=== PATIENT | male | born 1980 | race Caucasian/White ===

== ENCOUNTER 2019-04-11 13:25 | Observation (INO) | payer MEDICARE, MEDICAID, SELFPAY | END 2019-04-11 16:35 | disposition home or self-care (01) | PROVIDERS: Admitting Provider Internal Medicine Cardiovascular Disease; Family Provider Nurse Practitioner Family; Visit Provider Internal Medicine Cardiovascular Disease | DX: R07.89 Other chest pain (principal); R00.2 Palpitations; R06.02 Shortness of breath; F17.210 Nicotine dependence, cigarettes, uncomplicated; R61 Generalized hyperhidrosis; G47.31 Primary central sleep apnea; J43.9 Emphysema, unspecified; Z86.14 Personal history of Methicillin resistant Staphylococcus aureus infection; Z82.49 Family history of ischemic heart disease and other diseases of the circulatory system | CPT/HCPCS: 36415; 93458; G0378 ×9; J1644 ×2; J2001; J2250 ×3; J3010; J3490; Q9967 ==

== ENCOUNTER → 2019-09-11 09:32 | Outpatient (BNVA) | payer MEDICARE, MEDICAID, SELFPAY | PROVIDERS: Family Provider Nurse Practitioner Family; PCP Nurse Practitioner Family; Visit Provider Nurse Practitioner Family | DX: M25.511 Pain in right shoulder (principal) | CPT/HCPCS: 73030; 73080 ==

== ENCOUNTER → 2019-09-24 14:01 | Outpatient (BNVA) | payer MEDICARE, MEDICAID, SELFPAY | PROVIDERS: Family Provider Nurse Practitioner Family; PCP Nurse Practitioner Family; Visit Provider Nurse Practitioner Family | DX: M25.511 Pain in right shoulder (principal) | CPT/HCPCS: 73030 ==

== ENCOUNTER 2019-09-26 16:33 | Outpatient (CLI) | payer MEDICARE, MEDICAID, SELFPAY ==
--- NOTE | 2019-09-26 17:30 | MRR_ITS ---
PROCEDURE INFORMATION: Exam: MR Right Upper Extremity Joint Without Contrast; Shoulder Exam date and time: 09/26/2019 5:10 PM Age: 39 years old Clinical indication: Pain; Shoulder; Right TECHNIQUE: Imaging protocol: MR of the Right upper extremity without contrast. Exam focused on the shoulder. COMPARISON: CR XR shoulder RT min 2V* [id number] 09/24/2019 10:38 AM FINDINGS: TENDONS: Supraspinatus tendon: Unremarkable. No evidence of tear. Infraspinatus tendon: Unremarkable. No evidence of tear. Subscapularis tendon: Unremarkable. No evidence of tear. Teres minor tendon: Unremarkable. No evidence of tear. Biceps brachii, long head tendon: Unremarkable. No evidence of tear. LIGAMENTS: Glenohumeral ligaments: Unremarkable. Glenoid labrum: Unremarkable. No evidence of tear. Cartilage: Unremarkable. Bones/joints: There is exaggerated hematopoietic marrow signal in the humerus. On some of the series such is series 9, image 20, there does appear to be slightly more edema the may reflect recent contusion or stress changes without a fracture. This is adjacent to the biceps tendon which is unremarkable. This may just be poor fat saturation. Joint fluid: No joint effusion. Muscles: Unremarkable. MR/MR shoulder RT wo con* [id number] IMPRESSION: 1. No rotator cuff tear. No labral tear. 2. Mildly exaggerated hematopoietic marrow signal. This is most common in overweight patients in smokers. On some of the series common appears may be slightly more edema in the anterior humeral metaphysis. This could just be poor fat saturation or could reflect some mild edema such is an early stress fracture or bony contusion. The adjacent biceps tendon and subscapularis are intact.
== END 2019-09-26 16:34 | disposition home or self-care (01) ==
PROVIDERS: Family Provider Nurse Practitioner Family; PCP Nurse Practitioner Family; Visit Provider Orthopaedic Surgery
DX: M25.511 Pain in right shoulder (principal)
CPT/HCPCS: 73221

== ENCOUNTER → 2019-11-12 13:21 | Outpatient (BNVA) | payer MEDICARE, MEDICAID, SELFPAY | PROVIDERS: Family Provider Nurse Practitioner Family; PCP Nurse Practitioner Family; Visit Provider Nurse Practitioner | DX: R50.9 Fever, unspecified (principal); J01.90 Acute sinusitis, unspecified; J01.40 Acute pansinusitis, unspecified | CPT/HCPCS: 87400 ==

== ENCOUNTER → 2020-05-26 16:44 | Outpatient (BNVA) | payer MEDICARE, SELFPAY | PROVIDERS: Family Provider Nurse Practitioner Family; PCP Nurse Practitioner Family; Visit Provider Nurse Practitioner Family | DX: J22 Unspecified acute lower respiratory infection (principal) | CPT/HCPCS: 71046 ==

== ENCOUNTER 2020-07-16 11:54 | Emergency (ER) | payer MEDICARE, MEDICAID, SELFPAY ==
[2020-07-16 12:08] VITALS: BP 109/66; PULSE 85; RESP 18; TEMP 36.7; O2SAT 96; BMI 20.2
--- NOTE | 2020-07-16 12:30 | XR_ITS ---
WS: [id number] Exam: XR chest 1V portable [id number] Date/Time of Exam: 07/16/2020 12:50 PM Reason For Exam: syncope Comparison 05/26/2020. The lungs are fully expanded and clear. Normal cardiomediastinal structures and bony elements. No ple ural effusions. XR/XR chest 1V portable [id number] IMPRESSION: 1. No acute cardiopulmonary finding.
--- NOTE | 2020-07-16 12:34 | W.ED.COVID ---
HPI - COVID General: Chief Complaint: COVID symptoms Stated Complaint: sob,cough, muscle aches Time Seen by Provider: 07/16/20 12:15 Source: patient Mode of arrival: ambulatory Limitations: no limitations Triage information: Has fever, cough or shortness of breath. 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 He reports fever stopped yesterday. States feels weak and tired. Does not understand why he is still sick and not feeling well. He denies vomiting, able to eat and drink without difficulty despite decreased appetite. He denies chest pain. He states shortness of breath with exertion but feels better when he rests. has oxygen sensor he monitors oxygen at home. Oxygen saturation 96 to 100%. He is here with his spouse who is also being seen, she has symptoms of Covid. He request confirmed Covid testing today. He is requesting to be tested again to ensure he is positive. MD complaint: known COVID positive (but [facility] in [place] told him, was a false + ) and has COVID symptoms Prior covid testing: no COVID 19 common symptoms: positive fever(s), chills, cough, productive cough (Range sputum), dyspnea, fatigue, body aches, loss of sense of smell and/or taste, nasal congestion, nausea and diarrhea (None today); negative headache(s) COVID 19 other sytmptoms: negative chest pain Onset (ago): day(s) (8) Pertinent comorbid conditions: other (COPD) Treatment prior to arrival: acetaminophen, ibuprofen, steroids and other (Ventolin HFA) COVID Results: SARS-CoV-2 RNA (RT-PCR) Pending 07/16/20 12:55 07/16/20 Review of Systems General: Reports: 10 or more systems reviewed and unremarkable except in HPI and below Const: Reports: fever(s), chills, body aches, fatigue and malaise Eyes: Denies: blurry vision or eye redness ENMT: Reports: nasal discharge and nasal congestion; Denies: odynophagia or dry mouth Card: Reports: dyspnea on exertion; Denies: chest pain, palpitations, irregular heart rhythm, edema, syncope or orthopnea Resp: Reports: dyspnea, productive cough (Range sputum) and chest congestion; Denies: wheezing, pain on inspiration or hemoptysis GI: Reports: nausea and diarrhea (None today); Denies: abdominal pain or constipation : Denies: difficulty urinating, dysuria or urinary urgency Musc: Denies: neck pain, back pain, joint pain or joint warmth Skin/Breast: Denies: rash or pruritus Neuro: Denies: headache(s), weakness in extremities or behavioral changes Psych: Denies: anxiety or depression Branden/Lymph: Denies: easy bruising PFSH ED PFSH: Medical History (Updated 07/16/20 @ 13:49 by PAUL Garcia) Essential hypertension History of rotator cuff tear Lower respiratory infection Shortness of breath Social History Smoking and tobacco status: current every day smoker Alcohol intake: former Physical Exam Const: COMMON NORMALS: no acute distress, patient oriented x3 and alert GENERAL APPEARANCE: cooperative, comfortable, well hydrated and other (Appears not feeling well) NUTRITIONAL APPEARANCE: thin ORIENTATION/CONSCIOUSNESS: Yes awake, Yes oriented to person, Yes oriented to place and Yes oriented to time HENMT: COMMON NORMALS: normocephalic, atraumatic, Normal external nose present and moist oral mucous membranes HEAD & SCALP: normal to inspection, normocephalic and atraumatic FACE & SINUS: normal facial exam and face symmetric NOSE: Normal external nose present MOUTH: Normal oral and palatal mucosa present THROAT: posterior oropharynx normal Eye: COMMON NORMALS: Equal, round and reactive pupils present and EOMs intact bilaterally GENERAL EYE: appearance normal, both eyes and all related structures PUPIL: Yes Equal, round and reactive pupils present Neck/C-Spine: COMMON NORMALS: full ROM and no lymphadenopathy GENERAL: Yes normal visual inspection and Yes trachea midline CERVICAL SPINE: Yes cervical ROM normal Lymph: LYMPHATIC: no lymphadenopathy noted Chest: COMMONS NORMALS: normal inspection of the chest Resp: COMMON NORMALS: normal respiratory effort and clear to auscultation bilaterally EFFORT & INSPECTION: Yes able to speak in complete sentences AUSCULTATION: clear to auscultation bilaterally Cardio: COMMON NORMALS: regular rhythm, S1 normal heart sound present, S2 normal heart sound present and Peripheral pulses 2+ throughout RHYTHM: regular rhythm HEART SOUNDS: S1 normal heart sound present and S2 normal heart sound present PERIPHERAL PULSES: Peripheral pulses 2+ throughout GI: COMMON NORMALS: Normal to inspection, nondistended, normoactive bowel sounds present, Soft to palpation and non-tender INSPECTION: Yes normal to inspection PALPATION: Yes Soft to palpation : COMMON NORMALS: Yes no CVA tenderness BLADDER/KIDNEY EXAM: Yes no CVA tenderness Back/Pelvis: COMMON NORMALS: no CVA tenderness and thoracic and lumbar spine normal to inspection Extremity: COMMON NORMALS: normal to inspection and capillary refill normal Neuro: COMMON NORMALS: patient oriented x3 and no focal motor deficits SENSORIUM/ORIENTATION: Yes alert, Yes oriented to person, Yes oriented to place and Yes oriented to time Psych: COMMON NORMALS: mental status grossly normal, Normal thought process present and cooperative ACTIVITY/MOTOR BEHAVIOR: Yes appropriate eye contact THOUGHT PROCESS: Normal thought process present Skin: COMMON NORMALS: no rashes or lesions noted and turgor normal GENERAL SKIN EXAM: no rashes or lesions noted and turgor normal Course Vital Signs: Vital signs: Vital Signs Temperature 98.1 F 07/16/20 12:08 Pulse Rate 85 07/16/20 12:08 Respiratory Rate 18 07/16/20 12:08 Blood Pressure 109/66 07/16/20 12:08 Pulse Oximetry 96 07/16/20 12:08 MDM - COVID Imaging Data: CXR: Radiologist's impression: [address] [address] XRay Report Signed Patient: Alberto Corado Unit #: [id number] : 1980 Age/Sex: 39 / M ADM Date: 07/16/20 Loc: ER Room/Bed: Attending Dr: Ordering Provider/Ordering MD: Ai Marrero Date of Service: 07/16/20 Procedure(s): XR chest 1V portable [id number] Accession Number(s): [id number] Report Number: [id number] WS: [id number] Exam: XR chest 1V portable [id number] Date/Time of Exam: 07/16/2020 12:50 PM Reason For Exam: syncope Comparison 05/26/2020. The lungs are fully expanded and clear. Normal cardiomediastinal structures and bony elements. No pleural effusions. XR/XR chest 1V portable [id number] IMPRESSION: 1. No acute cardiopulmonary finding. Dictated By: Fredo Barragan DO Signed By: Fredo Barragan DO Signed Date/Time: 07/16/20 1342 DD/ 1340 COVID Results: SARS-CoV-2 RNA (RT-PCR) Pending 07/16/20 12:55 07/16/20 Discharge Plan Discharge Patient Disposition: Home Clinical Impression: Suspected severe acute respiratory syndrome coronavirus 2 (SARS-CoV-2) infection Acute bronchitis Qualifiers: Bronchitis organism: unspecified organism Qualified Code(s): J20.9 - Acute bronchitis, unspecified Condition: Stable Prescriptions: New Zofran 4 mg tablet 4 mg PO Q4H Qty: 10 RF: 0 No Action acetaminophen [Tylenol] 325 mg capsule 325 mg PO QID PRNRF: 0 ibuprofen 800 mg tablet 800 mg PO Q8H PRN (Reason: back pain) 30 Days Qty: 90 RF: 2 tizanidine 4 mg tablet 4 mg PO Q6H PRN (Reason: muscle spasticity) 14 Days Qty: 30 RF: 0 prednisone 20 mg tablet 40 mg PO .Daily in A.M. 5 Days Qty: 10 RF: 0 levofloxacin 750 mg tablet 750 mg PO DAILY 7 Days Qty: 7 RF: 0 Advair HFA 230-21 mcg/actuation HFA aerosol inhaler 2 inh inhalation Q12H 30 Days Qty: 12 RF: 2 Discharge Orders: Discharge Order (Routine); Ordered 07/16/20 Ordered By: Ai Marrero Referrals: LAUREN Tsang, PRODUCT SPECIALIST [Primary Care Provider] - Discharge Diet: Advance as tolerated and Clear Liquid Discharge Activity: Limit activity as instructed Patient Instructions: Acute Bronchitis (ED), Viral Syndrome (ED) Activity Restrictions/Additional Instructions: Continue to monitor oxygen saturation at home, if oxygen level drops below 90% return to the emergency department for further evaluation ER to rest at home, remain in quarantine, COVID-19 testing results will be called to you, if positive, [facility] will contact you for further instructions Return to the emergency department if you develop chest pain, inability to catch your breath, or vomiting despite use of Zofran or other worsening symptoms. 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
[2020-07-18 22:19] LABS: Quest SARS-CoV-2 RNA NOT DETECTED (NOT DETECTED)
== END 2020-07-16 14:16 | disposition home or self-care (01) ==
PROVIDERS: Emergency Provider Nurse Practitioner Family; PCP Nurse Practitioner Family
DX: J20.9 Acute bronchitis, unspecified (principal); Z20.828 Contact with and (suspected) exposure to other viral communicable diseases; I10 Essential (primary) hypertension; F17.210 Nicotine dependence, cigarettes, uncomplicated
CPT/HCPCS: 12345; 71045; 87635; 99281; 99283

== ENCOUNTER → 2020-10-22 09:11 | Outpatient (BNVA) | payer MEDICARE, MEDICAID, SELFPAY | PROVIDERS: PCP Nurse Practitioner Family; Visit Provider Nurse Practitioner Family | DX: S69.91XA Unspecified injury of right wrist, hand and finger(s), initial encounter (principal); X58.XXXA Exposure to other specified factors, initial encounter | CPT/HCPCS: 73140 ==

== ENCOUNTER 2021-06-07 07:51 | Outpatient (CLI) | payer MEDICARE, MEDICAID, SELFPAY ==
[2021-06-07] MEDS: iohexol 300 mg/mL 50 mL Btl PO (08:35)
--- NOTE | 2021-06-07 09:30 | CT_ITS ---
WS: [id number] CT ABDOMEN PELVIS TECHNIQUE: Contrast-enhanced CT of the abdomen and pelvis with coronal and sagittal reformatted image s. CLINICAL INFORMATION: R10.9 - Unspecified abdominal pain COMPARISON: July 19, 2019 DLP: 1049.[address] scans at [place] use at least one of these dose optimization techniques: automated e xposure control; mA and/or kV adjustment per patient size (includes targeted exams where dose is matc hed to clinical indication); or iterative reconstruction. FINDINGS: Hepatomegaly. Diffuse fatty infiltration liver. Normal portal vein and splenic vein. Lung bases are w ell aerated. Normal GE junction. Adrenal glands are normal. Normal renal parenchymal enhancement. No hydronephrosis. Normal spleen. Prior epigastric ventral abdominal wall hernia repair. No evidence of recurrence herni a. Tiny fat-containing umbilical hernia. No herniated bowel. Normal caliber abdominal aorta. No evidence of high-grade small or large bowel obstruction. No abdomi nal or pelvic lymphadenopathy. No inguinal lymphadenopathy. Normal lumbar spine. CT/CT abdomen pelvis w con* [id number] IMPRESSION: 1. Hepatomegaly with diffuse fatty infiltration. 2. Prior epigastric hernia repair. No evidence of recurrent hernia or herniate d bowel. 3. Tiny fat-containing umbilical hernia appears unchanged. 4. Sigmoid diverticulosis. No evidence of acute diverticulitis. 5. No other significant findings.
[2021-06-07] MEDS: iohexol 300 mg/mL 100 mL Btl IV (09:32)
== END 2021-06-07 07:52 | disposition home or self-care (01) ==
PROVIDERS: PCP Nurse Practitioner Family; Visit Provider Surgery
DX: R10.9 Unspecified abdominal pain (principal); K43.9 Ventral hernia without obstruction or gangrene; R16.0 Hepatomegaly, not elsewhere classified; K76.0 Fatty (change of) liver, not elsewhere classified; K57.30 Diverticulosis of large intestine without perforation or abscess without bleeding
CPT/HCPCS: 74177; Q9967

== ENCOUNTER → 2021-06-27 09:55 | Outpatient (BNVA) | payer MEDICARE, MEDICAID, SELFPAY | PROVIDERS: PCP Nurse Practitioner Family; Visit Provider Surgery | DX: Z20.822 Contact with and (suspected) exposure to COVID-19 (principal) | CPT/HCPCS: 87635 ==

== ENCOUNTER 2021-06-28 08:15 | Outpatient (CLI) | payer MEDICARE, MEDICAID, SELFPAY ==
--- NOTE | 2021-06-28 08:21 | MR_ITS ---
WS: [id number] MRI ABDOMEN without CONTRAST. COMPARISON: CT 06/07/2021 Multiplanar, multisequence imaging is performed without contrast. Liver is very slightly enlarged. No significant hepatic steatosis is identified. No bile duct dilatat ion. Portal vein is normal. Spleen is normal size. Normal pancreas. Pancreatic duct is normal. No adr enal mass. No renal obstruction or mass. No ascites or adenopathy. Negative gallbladder. Lung bases are clear. Visualized GI tract is normal. There is moderate constipation noted with increa sed fecal material within the transverse colon and splenic flexure. MR/MR abdomen wo con [id number] IMPRESSION: 1. No abnormalities noted on this MRI of the abdomen without contrast. 2. Moderate constipation involving the transverse colon and splenic flexure wi th no obstruction. 3. No bile duct dilatation or mass.
== END 2021-06-28 08:16 | disposition home or self-care (01) ==
PROVIDERS: PCP Nurse Practitioner Family; Visit Provider Surgery
DX: K59.00 Constipation, unspecified (principal)
CPT/HCPCS: 74181

== ENCOUNTER 2021-06-30 07:36 | Day surgery (SDC) | payer MEDICARE, MEDICAID, SELFPAY ==
[2021-06-28 09:43] VITALS: BMI 19.6
--- NOTE | 2021-06-30 07:40 | ANES.PREANE2 ---
Pre-Anesthetic Assessment Pre-Anesthetic Assessment: Height/Weight: Height 1.83 m Weight 65.771 kg Preop Diagnosis: abdominal pain Proposed Procedure: Operation Date: 06/30/21 10:00 Proposed Procedures p EGD 74709 R10.9(Not Applicable) - Dilshad Crawford MD Familial anesthetic complications: None Was Beta Emy taken within 24 hours: N/A Was Clonidine taken within 24 hours: N/A Last intake: > 8 hrs Social: Social History: Tobacco and No alcohol Exam: Pre-Anes Outpt Exam: alert, oriented x 3, clear to auscultation bilaterally and regular rate & rhythm Airway: Cervical ROM: WNL MP: 2 Dentition: False Pulmonary: Pulmonary: COPD GI: GI: GERD Anesthetic Plan: ASA status: 2 Anesthesia: MAC Risk of > 500 ml blood loss (7ml/kg in children): No PFSH Anesthesia PFSH: Medical History Abdominal hernia Essential hypertension Finger injury History of amputation of toe 2004 History of rotator cuff tear Lower respiratory infection Surgical History H/O ventral hernia repair History of colonoscopy 2018 History of fasciotomy right 2005 History of incisional hernia repair Social History Alcohol intake: former Data Anesthesia Cardiac Studies: No Data to Display
--- NOTE | 2021-06-30 07:47 | W.PM.OPSUD ---
Surgery/Procedure H&P Update DATE OF PROCEDURE: June 30, 2021 DATE H&P PERFORMED: 06/21/21 PREOP DIAGNOSIS: abdominal pain PLANNED PROCEDURE: Operation Date: 06/30/21 10:00 Proposed Procedures p EGD 30657 R10.9(Not Applicable) - Dilshad Crawford MD
[2021-06-30 07:57] VITALS: BP 120/65; PULSE 81; RESP 18; TEMP 36.6; O2SAT 99
[2021-06-30] MEDS: sodium chloride 0.9% 1,000 ML 30 ML IV (08:06)
[2021-06-30 08:23] VITALS: BP 111/64; PULSE 81; RESP 16; TEMP 36.6; O2SAT 98
[2021-06-30 08:30] VITALS: BP 120/75; PULSE 77; RESP 18; TEMP 36.3; O2SAT 96
[2021-06-30 08:40] VITALS: BP 121/80; PULSE 77; RESP 18; O2SAT 98
== END 2021-06-30 08:52 | disposition home or self-care (01) ==
PROVIDERS: PCP Nurse Practitioner Family; Visit Provider Surgery
PROC: 0DJ08ZZ Inspection of Upper Intestinal Tract, Via Natural or Artificial Opening Endoscopic (ICD-10-PCS; CPT 43235; principal; 2021-06-30 10:00)
DX: R10.13 Epigastric pain (principal); K29.50 Unspecified chronic gastritis without bleeding; K31.A0 Gastric intestinal metaplasia, unspecified; K25.9 Gastric ulcer, unspecified as acute or chronic, without hemorrhage or perforation; K20.90 Esophagitis, unspecified without bleeding; R10.12 Left upper quadrant pain; I10 Essential (primary) hypertension; Z88.0 Allergy status to penicillin; Z88.2 Allergy status to sulfonamides; Z98.890 Other specified postprocedural states
CPT/HCPCS: 43239; 88305; 96360; J2704; J7030

== ENCOUNTER → 2021-08-09 11:57 | Outpatient (BNVA) | payer MEDICARE, MEDICAID, SELFPAY | PROVIDERS: PCP Nurse Practitioner Family; Visit Provider Nurse Practitioner Family | DX: J06.9 Acute upper respiratory infection, unspecified (principal); R68.89 Other general symptoms and signs | CPT/HCPCS: 87400; 87635 ==

== ENCOUNTER → 2021-08-12 09:30 | Outpatient (BNVA) | payer MEDICARE, MEDICAID, SELFPAY | PROVIDERS: PCP Nurse Practitioner Family; Visit Provider Nurse Practitioner Family | DX: J06.9 Acute upper respiratory infection, unspecified (principal); R68.89 Other general symptoms and signs | CPT/HCPCS: 87635 ==

== ENCOUNTER 2022-01-25 12:30 | Outpatient (CLI) | payer MEDICARE, MEDICAID, SELFPAY ==
--- NOTE | 2022-01-25 12:44 | CT_ITS ---
WS: [id number] CT SINUSES TECHNIQUE: Noncontrast CT of the paranasal sinuses with coronal and sagittal reformatted images. CLINICAL INFORMATION: SINUSITIS COMPARISON: None. DLP: 364.[address] scans at [facility] use at least one of these dose optimization techniques: automated e xposure control; mA and/or kV adjustment per patient size (includes targeted exams where dose is matc hed to clinical indication); or iterative reconstruction. FINDINGS: Mild LEFT to RIGHT nasal septal deviation measuring 3 mm. Prior RIGHT maxillary antrostomy with uncinectomy. LEFT honorio bullosa. Polypoid mucosal thickening in the RIGHT greater than LEFT max illary sinuses measuring 8 mm on the RIGHT and 6 mm LEFT. Mild narrowing of the LEFT ostiomeatal unit with mild mucosal thickening. Mild mucosal thickening in the frontoethmoidal recesses and ethmoid air cells. Frontal sinuses are we ll aerated. Normal pterygopalatine fossa. Sphenoid sinus is well aerated. Tiny retention cyst LEFT sp henoid sinus measuring 5 mm. Mastoid air cells well aerated. Normal posterior nasopharynx. Normal par apharyngeal fat. Partially visualized intracranial contents appear normal. CT/CT sinus wo con* [id number] IMPRESSION: 1. Mild LEFT to RIGHT nasal deviation measuring 3 mm with a leftward directed spur. 2. Prior postoperative changes RIGHT maxillary antrostomy and uncinectomy. 3. Mild narrowing of the LEFT ostiomeatal unit with mild mucosal thickening. 4. Polypoid mucosal thickening RIGHT greater than LEFT maxillary sinuses descr ibed above. 5. Mild mucosal thickening in the frontal ethmoidal recesses and ethmoid cells . 6. Tiny retention cyst in the LEFT sphenoid sinus measuring 5 mm. Slight mucos al thickening along the sphenoid sinus ostia. 7. Mastoid air cells well aerated. 8. Posterior nasopharynx appears normal.
== END 2022-01-25 12:31 | disposition home or self-care (01) ==
LOC: RAD 12:35
PROVIDERS: PCP Nurse Practitioner Family; Visit Provider Otolaryngology
DX: J32.9 Chronic sinusitis, unspecified (principal); J34.1 Cyst and mucocele of nose and nasal sinus; J34.2 Deviated nasal septum
CPT/HCPCS: 70486

== ENCOUNTER → 2022-01-30 09:24 | Outpatient (BNVA) | payer MEDICARE, MEDICAID, SELFPAY | PROVIDERS: PCP Nurse Practitioner Family; Visit Provider Otolaryngology | DX: J32.9 Chronic sinusitis, unspecified (principal); J34.2 Deviated nasal septum; M95.0 Acquired deformity of nose; L90.5 Scar conditions and fibrosis of skin; F17.210 Nicotine dependence, cigarettes, uncomplicated | CPT/HCPCS: 99213 ==

== ENCOUNTER → 2022-04-25 08:41 | Outpatient (BNVA) | payer MEDICARE, MEDICAID, SELFPAY | PROVIDERS: PCP Nurse Practitioner Family; Visit Provider Otolaryngology | DX: J32.9 Chronic sinusitis, unspecified (principal); J34.2 Deviated nasal septum; M95.0 Acquired deformity of nose; L90.5 Scar conditions and fibrosis of skin; Z87.891 Personal history of nicotine dependence | CPT/HCPCS: 99213 ==

== ENCOUNTER → 2022-05-30 07:55 | Outpatient (BNVA) | payer MEDICARE, MEDICAID, SELFPAY | PROVIDERS: PCP Nurse Practitioner Family; Visit Provider Otolaryngology | DX: J34.2 Deviated nasal septum (principal); M95.0 Acquired deformity of nose; J32.9 Chronic sinusitis, unspecified; L90.5 Scar conditions and fibrosis of skin; Z87.891 Personal history of nicotine dependence | CPT/HCPCS: 99214 ==

== ENCOUNTER 2022-06-01 09:38 | Day surgery (SDC) | payer MEDICARE, MEDICAID, SELFPAY ==
[2022-05-29 11:44] VITALS: BMI 20.2
[2022-06-01] VITALS (14 sets, daily range): BP systolic 129–153; BP diastolic 71–99; PULSE 63–83; RESP 13–18; TEMP 36.3–36.9; O2SAT 95–100
[2022-06-01] MEDS: sodium chloride 0.9% 1,000 ML 30 ML IV ×2 (10:29→14:42)
--- NOTE | 2022-06-01 11:50 | P.ANESASSM_ITS ---
Pre-Anesthetic Assessment Height/Weight: Height 1.8 m Weight 65.771 kg Temp Pulse Resp BP Pulse Ox O2 Del Method 98.0 F 73 16 145/88 98 06/01/22 10:13 06/01/22 10:13 06/01/22 10:13 06/01/22 10:13 06/01/22 10:13 06/01/22 10:15 Preop Diagnosis: Chronic sinusitis/deviated nasal septum/alar scarring Operation Date: 06/01/22 11:55 Proposed Procedures p Endoscopic Bilateral antrosotmy with maxillary sinusectomy, Bilateral anterior ethmoidectomy, septoplasty with reconstruction of nares with flap rotation- [id number],J32.9,J34.2,M95.0(Bilateral) - Flynn Mcconnell MD s Ethmoidectomy(Bilateral) - Flynn Mcconnell MD s Septoplasty(Not Applicable) - Flynn Mcconnell MD Familial anesthetic complications: none Was Beta Emy taken within 24 hours: N/A Was Clonidine taken within 24 hours: N/A Last intake: Intake Last Liquid Date 05/31/22 Last Liquid Time 22:45 Last Solid Date 05/31/22 Last Solid Time 22:45 Social Tobacco (quit 2 weeks ago) and No alcohol Exam alert, oriented x 3 and regular rate & rhythm Airway Submandibular: within normal limits Cervical ROM: within normal limits Mallampati: Class II Dentition: chipped and false (upper) Pulmonary Chronic Obstructive Pulmonary Disease Musc/skel Osteoarthritis/DJD Anesthetic Plan ASA status: 2 Anesthesia: General Medications/Allergies Home Medications Medication Instructions Recorded Confirmed Last Taken Type No Known Home Medications 05/30/22 05/30/22 Unknown History Allergies Allergy/AdvReac Type Severity Reaction Status Date / Time cefaclor [From Ceclor] Allergy Mild RASH Verified 05/30/22 08:27 cephalexin [From Keflex] Allergy Mild RASH Verified 05/30/22 08:27 erythromycin base Allergy Mild RASH Verified 05/30/22 08:27 [From Erythrocin] Penicillins Allergy Mild RASH Verified 05/30/22 08:27 sulfamethoxazole Allergy Mild RASH Verified 05/30/22 08:27 [From Bactrim] trimethoprim [From Bactrim] Allergy Mild RASH Verified 05/30/22 08:27 methylprednisolone Allergy RASH Verified 05/30/22 08:27 [From Medrol] Current Medications Generic Name Dose Route Start Last Admin Trade Name Freq PRN Reason Stop Dose Admin Sodium Chloride 1,000 mls @ 30 mls/hr 06/01/22 10:15 06/01/22 10:29 Sodium Chloride 0.9% IV 06/02/22 10:14 30 mls/hr .Q24H EVAN Administration PFSH Anesthesia Medical History Essential hypertension Flu-like symptoms History of rotator cuff tear Lower respiratory infection Nasal cavity mass Upper respiratory infection Surgical History H/O esophagogastroduodenoscopy (06/30/21) esophagitis and gastric erosions H/O ventral hernia repair History of amputation of toe 2005 History of colonoscopy 2018 History of fasciotomy right 2005 History of incisional hernia repair History of sinus surgery Social History Smoking and tobacco status: former smoker Alcohol intake: former Data Anesthesia Cardiac Studies: No Data to Display
--- NOTE | 2022-06-01 11:54 | W.PM.OPSUD ---
Surgery/Procedure H&P Update DATE OF PROCEDURE: June 01, 2022 DATE H&P PERFORMED: 05/30/22 H&P UPDATE INFORMATION: I have reviewed H&P completed within last 30 days, I have examined patient prior to procedure and No changes to prior documentation CHANGES TO PREVIOUS DOCUMENTATION: No changes PREOP DIAGNOSIS: Chronic sinusitis/deviated nasal septum/alar scarring PRIMARY INDICATION FOR PROCEDURE: Chronic sinusitis deviated nasal septum and left nasal alar scarring with narrow nares. PLANNED PROCEDURE: Operation Date: 06/01/22 11:55 Proposed Procedures p Endoscopic Bilateral antrosotmy with maxillary sinusectomy, Bilateral anterior ethmoidectomy, septoplasty with reconstruction of nares with flap rotation- [id number],J32.9,J34.2,M95.0(Bilateral) - Flynn Mcconnell MD s Ethmoidectomy(Bilateral) - Flynn Mcconnell MD s Septoplasty(Not Applicable) - Flynn Mcconnell MD
[2022-06-01] MEDS: ceFAZolin 2,000 MG in sodium chloride 0.9% (plus) 50 ML 100 MG IV (12:20)
--- NOTE | 2022-06-01 13:00 | SUR.OPER ---
1238 DR WATSON INJECTED 11.9ML 2% LIDOCAINE WITH EPI 1:100,000 IN THE NASAL AREA
[2022-06-01] MEDS: oxymetazoline 0.05% Nasal Spray 15 mL 2 SPRAY NOSTRIL-B (13:07)
[2022-06-01] MEDS: neomycin-poly-bacitracin oint 28 gm 1 APPLIC TOPICAL (13:25)
--- NOTE | 2022-06-01 13:45 | P.OP_ITS ---
Operative Report Date of procedure: June 01, 2022 Pre-op diagnosis: Preop Diagnosis Chronic sinusitis/deviated nasal septum/alar scarring Post-op diagnosis: Same Post-op findings: Extremely narrow nasal inlet to the skull. That combined with the scarred left nares and alar area and the deviated nasal septum gave him an extremely narrow inlet even after surgery. Procedure done: Procedure done included endoscopic bilateral antrostomy with maxillary sinusectomy, endoscopic bilateral anterior ethmoidectomy, septoplasty and repair of stenotic left nares and alar scarring with rotation full-thickness skin flap. 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 Patient has a severely deviated nasal septum to the left side with virtually 100% obstruction. Has CT evidence of chronic anterior ethmoid and bilateral maxillary chronic sinusitis. Brief History: 41-year-old male patient due to and chronic bilateral anterior ethmoid and bilateral maxillary sinusitis and deviated nasal septum with stenotic left nares and alar rim.. The patient is to undergo endoscopic bilateral anterior ethmoidectomy and bilateral antrostomy with maxillary sinusectomy as well as septoplasty and reconstruction of left nares and alar rim with full-thickness rotation flap. The procedure risks and complications of been explained in detail. These risks include bleeding infection numbness scarring swelling bruising septal hematoma abscess or perforation change in sense of smell nasal dryness recurrent problems need for additional treatment potential injury to teeth and teeth roots as well as potential injury to orbit and orbital contents including loss of vision or blurred vision as well as CSF leak meningitis brain abscess heart attack stroke or not surviving the surgery. With these things understood informed consent was granted and witnessed. Procedure: Description of procedure: The patient was placed on the operating table in the supine position. Adequate general endotracheal tube was obtained. A timeout was accomplished identifying the patient date of plan procedure allergies fire risk and medications given. With all in agreement the procedure continued. The patient was repositioned into a semirecumbent position. His head was elevated. His nose was packed with cottonoids soaked in 12-hour Afrin. Initially only 2 packs could be placed on the left side and only 1 on the right side. After several minutes of the Afrin effect the cottonoids were removed and nasal hairs were trimmed with scissors. Then the Afrin packs were reapplied to the nose. 3 were able to be passed on the left side at this point but only 2 on the right. After cleansing the external nose injection was carried out around the left lateral alar rim and vestibule area to allow for localization for the flap reconstruction. Then the Afrin cottonoids were removed and the septum m iddle meatus middle and inferior turbinates were infiltrated with local. This was also done on the septum. A total of 11.9 mL of 2% Xylocaine with 1 100,000 epinephrine was utilized. The Afrin packs were reapplied to the nose and the patient was prepped and draped in usual fashion. Once again the packs were removed from the nose. A [place] elevator was able to rotate from intranasally the severely deviated septum from the right side over to the left. The incision was were created for the alar flap reconstruction to allow for better access to the left nasal cavity. Then a left hemitransfixion incision was created with a 15 blade carrying it down to the septal cartilage. A mucoperichondrial periosteal flap was then raised on the left side in all directions. Bony deflections and scar tissue was removed. Once this was accomplished a drain hole was created on the left side to prevent hematoma formation. The inferior turbinates were outfractured with a [place] elevator. The middle turbinates were infractured with a [place] elevator. Then using direct and endoscopic visualization the antrostomy was created and enlarged to greater than a centimeter in diameter. This was done with up-biting and backbiting through- cutting forceps. Similar instruments were used to debride the anterior ethmoid sinus. Typical landmarks were left in place including the entire attachment of the middle turbinate. Then a similar procedure was done on the right side. Findings within the sinuses were thickened mucous membrane obstructed ostiomeatal complexes and considerable mucous membrane thickening of the ethmoid sinuses. No pus was seen. No polyps were noted. Then the septal pocket was suctioned clean. The flap incisions for the alar reconstruction were placed into proper anatomic position and sutured with interrupted 5-0 nylon suture. The left hemitransfixion incision was closed loosely with interrupted 4-0 chromic suture. 2 Somers splints were cut to proper size coated with Neosporin and one was applied each side of the septum. These were then sutured in a through and through fashion with 3-0 Prolene. 2 Telfa packs were then cut to size coated with Neosporin and one was applied each side of the nose. Then the face was cleansed. Neosporin was applied to the external incision areas around the nares on the left side and then a drip pad was applied and taped to the cheeks. Drapes were removed and the patient was returned to anesthesia for wake-up and extubation. The patient tolerated the procedure well had an estimated blood loss of 25 mL or less and arrived in recovery in stable condition.
[2022-06-01] MEDS: ondansetron 2 mg/ML SDV 2 mL 4 MG IVP ×2 (14:35→16:17)
[2022-06-01] MEDS: fentaNYL 50 mcg/mL INJ 2mL IVP ×2 (14:44→14:55)
[2022-06-01] MEDS: HYDROmorphone 1 mg/mL INJ 1 mL 0.5 MG IVP (15:08)
[2022-06-01] MEDS: oxyCODONE-APAP 10-325 mg Tablet 1 TAB PO (16:16)
--- NOTE | 2022-06-01 16:49 | SUR.PHASEII ---
0855-Assisted patient as he ambulated to bathroom. He was wobbly but no issues, walked him back to his room. Patient was sitting on edge of [place] with in room, to assist in getting dressed.
--- NOTE | 2022-06-01 17:05 | SUR.PHASEII ---
1755-IV in right forearm was removed. Cath tip intact, patient tolerated well.
--- NOTE | 2022-06-01 17:06 | SUR.PHASEII ---
IV fluids remaining in bag was 250ml.
--- NOTE | 2022-06-01 17:24 | ANE.PACU2 ---
Inpatient post-anesthesia follow up: Airway intact: Yes Vital signs: Temperature 97.5 F Pulse Rate 63 Respiratory Rate 18 Blood Pressure 134/82 Pulse Oximetry 96 Oxygen Delivery Me thod Room Air Oxygen Flow Rate 6 Fraction of Inspir ed Oxygen Hydration adequate: Yes Nausea and vomiting: No Pain level: 4 Mental status: Baseline
== END 2022-06-01 17:05 | disposition home or self-care (01) ==
PROVIDERS: PCP Nurse Practitioner Family; Visit Provider Otolaryngology
PROC: (CPT 31231; principal; 2022-06-01 11:45)
PROC: (CPT 14060; 2022-06-01 11:45)
PROC: (CPT 30520; 2022-06-01 11:45)
DX: J32.9 Chronic sinusitis, unspecified (principal); J34.2 Deviated nasal septum; M95.0 Acquired deformity of nose; Z87.891 Personal history of nicotine dependence; J44.9 Chronic obstructive pulmonary disease, unspecified; M19.90 Unspecified osteoarthritis, unspecified site; I10 Essential (primary) hypertension
CPT/HCPCS: 14060; 30520; 31254; 31267; 88305; 88311; 96368; J0330; J1100; J1170; J2250; J2405; J2704; J2710; J3010; J3490; J7030

== ENCOUNTER → 2022-06-09 08:11 | Outpatient (BNVA) | payer MEDICARE, MEDICAID, SELFPAY | PROVIDERS: PCP Nurse Practitioner Family; Visit Provider Otolaryngology | DX: J34.2 Deviated nasal septum (principal); M95.0 Acquired deformity of nose; J32.9 Chronic sinusitis, unspecified; Z87.891 Personal history of nicotine dependence | CPT/HCPCS: 99024 ==

== ENCOUNTER → 2022-06-16 10:37 | Outpatient (BNVA) | payer MEDICARE, MEDICAID, SELFPAY | PROVIDERS: PCP Nurse Practitioner Family; Visit Provider Otolaryngology | DX: Z48.89 Encounter for other specified surgical aftercare (principal); M95.0 Acquired deformity of nose; Z87.891 Personal history of nicotine dependence | CPT/HCPCS: 99024 ==

== ENCOUNTER → 2022-06-26 08:28 | Outpatient (BNVA) | payer MEDICARE, MEDICAID, SELFPAY | PROVIDERS: PCP Nurse Practitioner Family; Visit Provider Otolaryngology | DX: W50.0XXA Accidental hit or strike by another person, initial encounter (principal); Y93.84 Activity, sleeping; J34.2 Deviated nasal septum | CPT/HCPCS: 99214 ==

== ENCOUNTER 2022-07-06 06:18 | Day surgery (SDC) | payer MEDICARE, MEDICAID, SELFPAY ==
[2022-07-05 13:50] VITALS: BMI 20.9
[2022-07-06] VITALS (19 sets, daily range): BP systolic 122–170; BP diastolic 70–128; PULSE 70–98; RESP 12–21; TEMP 36.6–37.8; O2SAT 93–100
[2022-07-06] MEDS: sodium chloride 0.9% 1,000 ML 30 ML IV (07:13)
--- NOTE | 2022-07-06 08:37 | P.ANESASSM_ITS ---
Pre-Anesthetic Assessment Height/Weight: Height 1.8 m Weight 68.039 kg Temp Pulse Resp BP Pulse Ox O2 Del Method 98.1 F 72 18 142/70 98 07/06/22 07:03 07/06/22 07:03 07/06/22 07:03 07/06/22 07:03 07/06/22 07:03 07/06/22 07:03 Preop Diagnosis: Deviated nasal septum/nasal obstruction Operation Date: 07/06/22 08:30 Proposed Procedures p reconstructive septoplasty 19071 J34.2(Not Applicable) - Flynn Mcconnell MD Familial anesthetic complications: none Was Beta Emy taken within 24 hours: N/A Was Clonidine taken within 24 hours: N/A Last intake: Intake Last Liquid Date 07/05/22 Last Liquid Time 23:00 Last Solid Date 07/05/22 Last Solid Time 23:00 Social No alcohol and No tobacco (h/o smoking) Exam alert, oriented x 3, clear to auscultation bilaterally and regular rate & rhythm Airway Submandibular: within normal limits Cervical ROM: within normal limits Mallampati: Class II Dentition: chipped (lower) and false (upper) Pulmonary Chronic Obstructive Pulmonary Disease [facility] [place] Osteoarthritis/DJD Anesthetic Plan ASA status: 2 Anesthesia: General Medications/Allergies Home Medications Medication Instructions Recorded Confirmed Last Taken Type No Known Home Medications 07/05/22 07/05/22 Unknown History Allergies Allergy/AdvReac Type Severity Reaction Status Date / Time cefaclor [From Ceclor] Allergy Mild RASH Verified 07/05/22 13:47 cephalexin [From Keflex] Allergy Mild RASH Verified 07/05/22 13:47 erythromycin base Allergy Mild RASH Verified 07/05/22 13:47 [From Erythrocin] Penicillins Allergy Mild RASH Verified 07/05/22 13:47 sulfamethoxazole Allergy Mild RASH Verified 07/05/22 13:47 [From Bactrim] trimethoprim [From Bactrim] Allergy Mild RASH Verified 07/05/22 13:47 methylprednisolone Allergy RASH Verified 07/05/22 13:47 [From Medrol] Current Medications Generic Name Dose Route Start Last Admin Trade Name Freq PRN Reason Stop Dose Admin Sodium Chloride 1,000 mls @ 30 mls/hr 07/06/22 07:00 07/06/22 07:13 Sodium Chloride 0.9% IV 07/07/22 06:59 30 mls/hr .Q24H EVAN Administration PFSH Anesthesia Medical History Essential hypertension Flu-like symptoms History of rotator cuff tear Lower respiratory infection Nasal cavity mass Upper respiratory infection Surgical History H/O esophagogastroduodenoscopy (06/30/21) esophagitis and gastric erosions H/O ventral hernia repair History of amputation of toe 2005 History of colonoscopy 2018 History of fasciotomy right 2005 History of incisional hernia repair History of sinus surgery Social History Smoking and tobacco status: former smoker Alcohol intake: former Data Anesthesia Cardiac Studies: No Data to Display
--- NOTE | 2022-07-06 09:01 | W.PM.OPSUD ---
Surgery/Procedure H&P Update DATE OF PROCEDURE: July 06, 2022 DATE H&P PERFORMED: 06/26/22 H&P UPDATE INFORMATION: I have reviewed H&P completed within last 30 days, I have examined patient prior to procedure and No changes to prior documentation CHANGES TO PREVIOUS DOCUMENTATION: No changes PREOP DIAGNOSIS: Deviated nasal septum/nasal obstruction PRIMARY INDICATION FOR PROCEDURE: Displaced nasal septum due to trauma weeks following previous septoplasty. PLANNED PROCEDURE: Operation Date: 07/06/22 08:30 Proposed Procedures p reconstructive septoplasty 68224 J34.2(Not Applicable) - Flynn Mcconnell MD
[2022-07-06] MEDS: levofloxacin-dextrose 5 % 750 MG/150 ML PREMIX 100 MG IV (09:13)
[2022-07-06] MEDS: neomycin-poly-bacitracin oint 28 gm 1 APPLIC TOPICAL (09:47)
--- NOTE | 2022-07-06 10:15 | P.OP_ITS ---
Operative Report Date of procedure: July 06, 2022 Pre-op diagnosis: Preop Diagnosis Deviated nasal septum/nasal obstruction Post-op diagnosis: Post septoplasty nasal trauma with fracture and displacement. Post-op findings: Severely displaced septum to the right side. Procedure done: Closed reduction of displaced nasal septal fracture. Implants: 2 septal splints and 2 Telfa packs Specimens removed/disposition: No specimen removed. Pathology: Nothing for pathology Surgeon: Flynn Mcconnell MD Anesthesia: General and Local Estimated blood loss: 15 mL Complications: No complications encountered Findings: Severely deviated nasal septum to the right side following elbow trauma to a recently operated on nose which included a septoplasty. This caused the septum to displace and fix in the right lateral position causing right nasal obstruction. Brief History: 41-year-old male patient underwent endoscopic sinus surgery septoplasty and turbinate reduction as well as a left alar reconstruction on June 01, 2022. Patient did well following the surgery initially with the splints and packing removed. Healing occurred appropriately but unfortunately the patient while laying in bed had his elbowed him in the nose and cause significant displacement of the septum to his right side. This caused almost complete right-sided nasal breathing obstruction. He is being brought to the operating room at this time to reduce this fracture of the nasal septum following previous nasal surgery. The procedure its risks and complications are well understood and informed consent was granted and witnessed. Patient understands that he will have splints and packing in place after the surgery. Procedure: Description of procedure: The patient was placed on the operating table in the supine position. Adequate general endotracheal tube anesthesia was obtained. A timeout was accomplished identifying the patient date of plan procedure allergies fire risk and medications given. With all in agreement the procedure continued. The patient was repositioned into a semirecumbent position. The patient's nose was packed with 6 cottonoids soaked in 12-hour Afrin. After several minutes the nasal hairs were trimmed with scissors and then the packing was removed. The septum and superior aspect of the nose especially on the right side were infiltrated with local. A total of 6.8 mL of 2% Xylocaine with 1- 100,000 epinephrine was utilized. The Afrin packs were reapplied to the nose and the patient was prepped and draped in usual fashion. The packing was once again removed from the nose. Based on the findings at this time his previous sinus surgery and alar surgery were well-healed. There is a severe bend of the septum displaced superiorly to the right side. Surprisingly it is already healed significantly in place. I used the long nasal speculum and [place] elevator to do a closed reduction displacing the septum from the right side back into the midline. This was done from an inferior to superior and anterior to posterior pattern. Once this was accomplished a [place] elevator was able to be passed through both nasal chambers to the nasopharynx without obstruction. Therefore no incisions were necessary to perform the reduction of the septal fracture. Patient still was noted because of that displacement to have a very irregular reese pattern to his posterior inferior turbinate on the right side. This was cauterized with the needle tip Bovie until it was brought into normal size. Then after once again checking proper position of the septum with [place] elevator passing to the nasopharynx on both sides 2 septal splints were cut to size and coated with Neosporin. These were sutured in a through and through fashion with 3-0 Prolene. Then 2 Telfa packs were cut to size coated with Neosporin and one was applied each side of the septum extending high up into the nose area where the greatest displacement was. This to help with bleeding control as well as to add further pressure to the splinting and keep the septum in proper midline position. Once this was accomplished the mouth and oropharynx were suctioned clean. No sign of active bleeding. The drapes were removed from the patient and the patient was returned to anesthesia for wake-up and extubation. He tolerated the procedure well had an estimated blood loss of 15 mL or less and arrived in recovery in stable condition.
[2022-07-06] MEDS: fentaNYL 50 mcg/mL INJ 2mL IVP ×2 (10:40→10:56)
[2022-07-06] MEDS: ondansetron 2 mg/ML SDV 2 mL 4 MG IVP (10:46)
[2022-07-06] MEDS: HYDROmorphone 1 mg/mL INJ 1 mL 0.5 MG IVP ×2 (11:02→11:19)
--- NOTE | 2022-07-06 11:04 | SUR.PHASEI ---
1029 pt to pacu 4 AWAKES TO VOICE, PT WITH 2 SEPTAL SPLINTS TO NARES, GOOD RESP EFFORT, HOB AT 30 DEGREES, MONITOR SR WITH NO ECTOPY , IV TO LT FA 20 PATENT TO NS 500 ML AT MOD RATE PER GRAVITY, ID BRACELET TO LT WRIST 1040 PT AWAKE ALERT C/O OF PAIN SEE PAIN MED GIVEN, NO BLEEDING NOTED
--- NOTE | 2022-07-06 11:08 | SUR.PHASEI ---
PT MORE ALERT SEE PAIN MED GIVEN, PT C/O OF PAIN OF 9 HOB NOW AT 40 DEGERES.
--- NOTE | 2022-07-06 11:22 | SUR.PHASEI ---
PT MORE ALERT TAKING ICE CHIPS PT MOANS WITH PAIN AND POINTS TO FACE NOSE, RATES 7-8/10 SEE PAIN MED REPEATED, WARM BLANKETS TO PT.MONITOR SR UNCHANGED, NOSE AREA D/I NO BLEEDING
[2022-07-06] MEDS: oxyCODONE-APAP 10-325 mg Tablet 1 TAB PO (12:10)
--- NOTE | 2022-07-06 15:28 | ANE.PACU2 ---
Inpatient post-anesthesia follow up: Airway intact: Yes Vital signs: Temperature 98.4 F Pulse Rate 70 Respiratory Rate 16 Blood Pressure 155/91 Pulse Oximetry 98 Oxygen Delivery Me thod Room Air Oxygen Flow Rate Fraction of Inspir ed Oxygen Hydration adequate: Yes Nausea and vomiting: No Pain level: 4 Mental status: Baseline
== END 2022-07-06 13:20 | disposition home or self-care (01) ==
PROVIDERS: PCP Nurse Practitioner Family; Visit Provider Otolaryngology
PROC: (CPT 30520; principal; 2022-07-06 08:20)
PROC: 0NSBXZZ Reposition Nasal Bone, External Approach (ICD-10-PCS; CPT 21337; 2022-07-06 08:20)
DX: J34.2 Deviated nasal septum (principal); J34.89 Other specified disorders of nose and nasal sinuses; J44.9 Chronic obstructive pulmonary disease, unspecified; I10 Essential (primary) hypertension; Z87.891 Personal history of nicotine dependence
CPT/HCPCS: 21337; J1170; J1956; J2250; J2405; J2704; J2710; J3010; J3490; J7030

== ENCOUNTER → 2022-07-14 11:12 | Outpatient (BNVA) | payer MEDICARE, MEDICAID, SELFPAY | PROVIDERS: PCP Nurse Practitioner Family; Visit Provider Otolaryngology | DX: Z48.810 Encounter for surgical aftercare following surgery on the sense organs (principal); J34.2 Deviated nasal septum | CPT/HCPCS: 99024 ==

== ENCOUNTER 2023-03-01 12:02 | Emergency (ER) | payer MEDICARE, MEDICAID, SELFPAY ==
[2023-03-01 12:02] VITALS: BP 118/68; PULSE 81; RESP 18; TEMP 37; O2SAT 98; BMI 21.6
--- NOTE | 2023-03-01 12:04 | ECG_ITS ---
[facility] Test Date: 2023-03-01 Pat Name: Alberto Corado Department: Room: Gender: Male [employer]: : 1980 Requested By: Dave Ventura Order Number: [id number] Shalonda MD: Patricia Miller M.D. Measurements Intervals [place] Rate: 74 P: 65 DE: 131 QRS: 80 QRSD: 92 T: 64 QT: 368 QTc: 410 Interpretive Statements SINUS RHYTHM Compared to ECG 09/04/2018 16:45:40 Short DE interval no longer present T-wave abnormality no longer present Electronically Signed On 03-01-2023 13:11:16 CDT by Patricia Miller M.D. [email or web address]
--- NOTE | 2023-03-01 12:04 | XRR_ITS ---
PROCEDURE INFORMATION: Exam: XR Chest Exam date and time: 03/01/2023 12:11 PM Age: 42 years old Clinical indication: Pain; Angina pectoris; Additional info: Cp TECHNIQUE: Imaging protocol: Radiologic exam of the chest. Views: 1 view. COMPARISON: CR XR chest 1V portable [id number] 07/16/2020 1:19 PM FINDINGS: Lungs: Unremarkable. No consolidation. Pleural spaces: Unremarkable. No pleural effusion. No pneumothorax. Heart/Mediastinum: Unremarkable. No cardiomegaly. Bones/joints: Unremarkable. XR/XR chest 1V portable [id number] IMPRESSION: No acute findings.
[2023-03-01 12:29] LABS: Basophils # 0.1 10^3/uL (0.0-0.1); Basophils % 0.9 %; Eosinophils # 0.3 10^3/uL (0.0-0.8); Eosinophils % 1.7 %; Hematocrit 46.3 % (42.0-52.0); Hemoglobin 15.1 g/dL (11.7-16.6); Lymphocytes # 2.5 10^3/uL (0.8-4.8); Lymphocytes % 17.1 %; Mean Corpuscular HGB Conc 32.6 g/dL (30.0-36.0); Mean Corpuscular Hemoglobin 28.7 pg (28.0-34.0); Mean Platelet Volume 11.3 fL (7.4-10.4); Monocytes # 0.8 10^3/uL (0.2-0.9); Monocytes % 5.3 %; Neutrophils # 10.96 10^3/uL (1.8-7.7); Neutrophils % 74.7 %; Nucleated Red Blood Cells % 0 %; Platelet Count 210 10^3/cmm (130-400); Red Blood Count 5.26 10^6/uL (4.1-5.3); White Blood Count 14.7 10^3/uL (4.0-10.0)
--- NOTE | 2023-03-01 12:33 | ED_ITS ---
HPI - Chest Pain General: Chief Complaint: Chest Pain Stated Complaint: chest pain Time Seen by Provider: 03/01/23 12:04 Source: patient and EMS Mode of arrival: EMS Limitations: no limitations History of Present Illness: 42-year-old male states he had sudden onset of chest pain roughly 3 hours ago states is a pressure type pain that did go down his arm he states his pain is since resolved he did receive nitro and aspirin by ambulance he denies any shortness of breath denies any nausea or diaphoresis. Associated symptoms: Deny abdominal pain, dyspnea, fever(s), nausea or vomiting Review of Systems Const: Denies: fever(s), chills or body aches Eyes: Denies: eye discomfort ENMT: Denies: throat pain or dental pain Card: Reports: chest pain Resp: Denies: dyspnea GI: Denies: abdominal pain, nausea, vomiting or diarrhea : Denies: dysuria Musc: Denies: neck pain or back pain Skin/Breast: Denies: rash Neuro: Denies: headache(s) PFSH ED PFSH: Medical History Essential hypertension Flu-like symptoms History of rotator cuff tear Lower respiratory infection Nasal cavity mass Upper respiratory infection Surgical History H/O esophagogastroduodenoscopy (06/30/21) esophagitis and gastric erosions H/O ventral hernia repair History of amputation of toe 2005 History of colonoscopy 2018 History of fasciotomy right 2005 History of incisional hernia repair History of sinus surgery Social History Smoking and tobacco status: former smoker Alcohol intake: former Substance/Drug Use: never Physical Exam Const: COMMON NORMALS: no acute distress, patient oriented x3 and healthy appearing HENMT: COMMON NORMALS: normocephalic and atraumatic HEAD & SCALP: normocephalic and atraumatic Eye: COMMON NORMALS: conjunctivae normal CONJUNCTIVA: Yes conjunctivae normal Neck/C-Spine: COMMON NORMALS: full ROM and supple Chest: COMMONS NORMALS: normal inspection of the chest and normal palpation of entire chest wall Resp: COMMON NORMALS: normal respiratory effort, No retractions, No use of accessory muscles and clear to auscultation bilaterally AUSCULTATION: clear to auscultation bilaterally Cardio: COMMON NORMALS: regular rate, regular rhythm and No murmurs present (Cardio) RATE: regular rate RHYTHM: regular rhythm GI: COMMON NORMALS: Normal to inspection, nondistended, normoactive bowel sounds present, Soft to palpation, non-tender and no masses PALPATION: Yes Soft to palpation Extremity: COMMON NORMALS: normal to inspection and full ROM Neuro: COMMON NORMALS: patient oriented x3, moves all extremities and no focal motor deficits Psych: COMMON NORMALS: mental status grossly normal, Normal thought process present and cooperative THOUGHT PROCESS: Normal thought process present Skin: COMMON NORMALS: no rashes or lesions noted and no wounds GENERAL SKIN EXAM: no rashes or lesions noted Course Vital Signs: Vital signs: Vital Signs Temperature 98.6 F 03/01/23 12:02 Pulse Rate 69 03/01/23 14:29 Respiratory Rate 18 03/01/23 14:29 Blood Pressure 119/79 03/01/23 14:29 Pulse Oximetry 100 03/01/23 14:29 Oxygen Delivery Me thod Room Air 03/01/23 13:44 MDM - Chest Pain Medical Decision Making Patient presents for chest pain and shoulder pains atypical in nature he has no signs of acute coronary syndrome or pulmonary embolism chest x-ray EKG are normal his troponins both are normal he is stable for discharge has been pain- free here he is to follow-up his PCP and return if worsening he understands agrees to plan. Medical Records I reviewed the patient's medical records. Lab Data I reviewed the patient's lab results. 03/01/23 12:19 03/01/23 12:19 Radiology Impressions Chest X-Ray 03/01/23 12:04 IMPRESSION: No acute findings. Laboratory Results WBC 14.7 10^3/uL (4.0-10.0) H 03/01/23 12:19 RBC 5.26 10^6/uL (4.1-5.3) 03/01/23 12:19 Hgb 15.1 g/dL (11.7-16.6) 03/01/23 12:19 Hct 46.3 % (42.0-52.0) 03/01/23 12:19 MCV 88.0 fl (80-94) 03/01/23 12:19 MCH 28.7 pg (28.0-34.0) 03/01/23 12:19 MCHC 32.6 g/dL (30.0-36.0) 03/01/23 12:19 RDW 13.0 % (12.1-15.1) 03/01/23 12:19 Plt Count 210 10^3/cmm (130-400) 03/01/23 12:19 MPV 11.3 fL (7.4-10.4) H 03/01/23 12:19 Neut % (Auto) 74.7 % 03/01/23 12:19 Lymph % (Auto) 17.1 % 03/01/23 12:19 Evangeline % (Auto) 5.3 % 03/01/23 12:19 Eos % (Auto) 1.7 % 03/01/23 12:19 Baso % (Auto) 0.9 % 03/01/23 12:19 Neut # (Auto) 10.96 10^3/uL (1.8-7.7) H 03/01/23 12:19 Lymph # (Auto) 2.5 10^3/uL (0.8-4.8) 03/01/23 12:19 Evangeline # (Auto) 0.8 10^3/uL (0.2-0.9) 03/01/23 12:19 Eos # (Auto) 0.3 10^3/uL (0.0-0.8) 03/01/23 12:19 Baso # (Auto) 0.1 10^3/uL (0.0-0.1) 03/01/23 12:19 Nucleated RBC % (auto) 0 % 03/01/23 12:19 Nucleated RBCs # 0.0 /100WBC 03/01/23 12:19 Sodium 142 mmol/L (136-145) 03/01/23 12:19 Potassium 4.2 mmol/L (3.5-5.1) 03/01/23 12:19 Chloride 106 mmol/L (98-107) 03/01/23 12:19 Carbon Dioxide 26 mmol/L (22-29) 03/01/23 12:19 Anion Gap 14.2 (5-19) 03/01/23 12:19 BUN 11 mg/dL (6-20) 03/01/23 12:19 Creatinine 0.8 mg/dL (0.7-1.2) 03/01/23 12:19 GFR Calculation 106.0 mL/min (90-130) 03/01/23 12:19 Glucose 70 mg/dL (65-115) 03/01/23 12:19 Calculated Osmolality 292 mOsm/kg (285-295) 03/01/23 12:19 Calcium 8.8 mg/dL (8.5-10.5) 03/01/23 12:19 Total Bilirubin 0.3 mg/dL (0.15-1.2) 03/01/23 12:19 AST 14 U/L (0-40) 03/01/23 12:19 ALT 14 U/L (0-41) 03/01/23 12:19 Alkaline Phosphatase 58 U/L (40-130) 03/01/23 12:19 Troponin T Baseline 6 ng/L (0-15) 03/01/23 12:19 Troponin T 120 Minute 6.00 ng/L (0-15) 03/01/23 13:46 Total Protein 6.2 g/dL (6.6-8.7) L 03/01/23 12:19 Albumin 4.5 g/dL (3.5-5.2) 03/01/23 12:19 Globulin 1.7 g/dL (1.3-4.6) 03/01/23 12:19 EKG Data EKG 1: I personally reviewed and interpreted this EKG as follows: EKG interpretation date: 03/01/23 EKG interpretation time: 12:25 Interpretation: nsr hr [address] or t wave abnormalities qrs 92 qtc 396 Discharge Plan Discharge Patient Disposition: Home Clinical Impression: Chest pain Condition: Stable Prescriptions: No Action oxycodone-acetaminophen 10-325 mg tablet 1 tab PO Q4H PRN (Reason: painful procedure) Qty: 30 0RF Discharge Orders: Discharge ED (Routine); Ordered 03/01/23 Ordered By: Dave Ventura Referrals: Beckie Zamora SCOURER [Primary Care Provider] - 1-3 days Discharge Diet: Advance as tolerated Discharge Activity: Resume usual activity Patient Instructions: Chest Pain (ED) Coding Level of Care Code ED Assistance Coordinator for [facility]
[2023-03-01 12:39] VITALS: BP 121/70; PULSE 70; RESP 17; O2SAT 98
[2023-03-01 12:49] LABS: Alanine Aminotransferase 14 U/L (0-41); Albumin Level 4.5 g/dL (3.5-5.2); Alkaline Phosphatase 58 U/L (40-130); Aspartate Amino Transferase 14 U/L (0-40); Blood Urea Nitrogen 11 mg/dL (6-20); Calcium 8.8 mg/dL (8.5-10.5); Carbon Dioxide 26 mmol/L (22-29); Chloride 106 mmol/L (98-107); Globulin 1.7 g/dL (1.3-4.6); Glucose 70 mg/dL (65-115); Osmolality Calculated 292 mOsm/kg (285-295); Sodium 142 mmol/L (136-145); Total Bilirubin 0.3 mg/dL (0.15-1.2); Total Protein 6.2 g/dL (6.6-8.7)
[2023-03-01 12:50] LABS: Troponin(5th) Baseline 6 ng/L (0-15)
[2023-03-01 12:53] LABS: Anion Gap 14.2 (5-19); Potassium 4.2 mmol/L (3.5-5.1)
[2023-03-01 13:44] VITALS: BP 108/64; PULSE 76; RESP 22; O2SAT 99
--- NOTE | 2023-03-01 14:04 | ECG_ITS ---
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 Measurements Intervals [place] Rate: 64 P: 61 MA: 147 QRS: 79 QRSD: 74 T: 68 QT: 368 QTc: 380 Interpretive Statements SINUS RHYTHM EARLY REPOLARIZATION [ST ELEVATION WITH NORMALLY INFLECTED T-WAVE] MODERATE ST DEPRESSION [0.05+ mV ST DEPRESSION] Compared to ECG 03/01/2023 12:25:43 Early repolarization now present ST (T wave) deviation now present Electronically Signed On 03-01-2023 14:43:11 CDT by Noe Decker M.D. [id number]
[2023-03-01 14:29] VITALS: BP 119/79; PULSE 69; RESP 18; O2SAT 100
[2023-03-01 14:34] LABS: Troponin 5 2HR Delta 0 ABS# (0-10)
[2023-03-01 14:36] VITALS: BP 119/79; PULSE 69; RESP 18; O2SAT 100
== END 2023-03-01 14:38 | disposition home or self-care (01) ==
PROVIDERS: Emergency Provider Emergency Medicine; PCP Nurse Practitioner Family
DX: R07.9 Chest pain, unspecified (principal); Z87.891 Personal history of nicotine dependence; I10 Essential (primary) hypertension
CPT/HCPCS: 36415; 71045; 80053; 84484; 85025; 93005; 99285

== ENCOUNTER → 2023-03-06 13:19 | Outpatient (BNVA) | payer MEDICARE, MEDICAID, SELFPAY | PROVIDERS: PCP Nurse Practitioner Family; Visit Provider Internal Medicine Cardiovascular Disease | DX: R07.89 Other chest pain (principal) | CPT/HCPCS: 99203 ==

== ENCOUNTER 2023-03-18 13:54 | Emergency (ER) | payer MEDICARE, MEDICAID, SELFPAY ==
[2023-03-18 14:17] VITALS: BP 116/69; PULSE 85; RESP 12; TEMP 36.8; O2SAT 97; BMI 21.3
--- NOTE | 2023-03-18 14:20 | XRR_ITS ---
PROCEDURE INFORMATION: Exam: XR Chest Exam date and time: 03/18/2023 3:03 PM Age: 42 years old Clinical indication: Pain; Chest pressure; Additional info: Chest pain TECHNIQUE: Imaging protocol: Radiologic exam of the chest. Views: 1 view. COMPARISON: CR XR chest 1V portable [id number] 03/01/2023 12:11 PM FINDINGS: Lungs: Unremarkable. No consolidation. Pleural spaces: Unremarkable. No pleural effusion. No pneumothorax. Heart/Mediastinum: Unremarkable. No cardiomegaly. Bones/joints: Unremarkable. Soft tissues: There are densities overlying the lateral aspects of the bilateral lower lung arias likely representing nipple shadows. XR/XR chest 1V portable [id number] IMPRESSION: Densities overlying the lower lung arias likely represent nipple shadows. If there is clinical concern for lung mass, nipple markers and repeat images are recommended.
--- NOTE | 2023-03-18 14:20 | ECG_ITS ---
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 Measurements Intervals [place] Rate: 81 P: 67 WA: 127 QRS: 83 QRSD: 89 T: 66 QT: 349 QTc: 407 Interpretive Statements SINUS RHYTHM Compared to ECG 03/01/2023 14:24:05 Early repolarization no longer present ST (T wave) deviation no longer present Electronically Signed On 03-19-2023 21:20:32 CDT by Patricia Miller M.D. [id number]
[2023-03-18 15:02] LABS: Basophils # 0.1 10^3/uL (0.0-0.1); Basophils % 0.7 %; Eosinophils # 0.3 10^3/uL (0.0-0.8); Hematocrit 51.4 % (42.0-52.0); Hemoglobin 16.8 g/dL (11.7-16.6); Lymphocytes # 2.9 10^3/uL (0.8-4.8); Lymphocytes % 19.6 %; Mean Corpuscular HGB Conc 32.7 g/dL (30.0-36.0); Mean Corpuscular Hemoglobin 28.7 pg (28.0-34.0); Mean Corpuscular Volume 87.9 fl (80-94); Mean Platelet Volume 11.5 fL (7.4-10.4); Monocytes # 0.8 10^3/uL (0.2-0.9); Monocytes % 5.6 %; Neutrophils # 10.56 10^3/uL (1.8-7.7); Neutrophils % 71.8 %; Nucleated Red Blood Cells % 0 %; Platelet Count 204 10^3/cmm (130-400); Red Blood Count 5.85 10^6/uL (4.1-5.3); Red Cell Distribution Width 12.9 % (12.1-15.1); White Blood Count 14.7 10^3/uL (4.0-10.0)
[2023-03-18 15:10] LABS: INR 0.98 (0.8-1.2); Partial Thromboplastin Time 29.9 SECONDS (23.9-36.7)
[2023-03-18 15:13] LABS: D Dimer 0.28 ug/mIFEU (0-0.59)
[2023-03-18 15:15] LABS: Troponin(5th) Baseline 6 ng/L (0-15)
[2023-03-18 15:30] LABS: Alanine Aminotransferase 22 U/L (0-41); Albumin Level 4.8 g/dL (3.5-5.2); Alkaline Phosphatase 66 U/L (40-130); Anion Gap 16.1 (5-19); Aspartate Amino Transferase 16 U/L (0-40); Blood Urea Nitrogen 15 mg/dL (6-20); Calcium 9.3 mg/dL (8.5-10.5); Carbon Dioxide 26 mmol/L (22-29); Chloride 103 mmol/L (98-107); Creatine Phosphokinase 92 U/L (39-308); Globulin 2.7 g/dL (1.3-4.6); Glucose 81 mg/dL (65-115); Lipase 39 U/L (13-60); NT Pro B Type Natriuretic Pept 36 pg/mL (0-125); Osmolality Calculated 292 mOsm/kg (285-295); Potassium 4.1 mmol/L (3.5-5.1); Sodium 141 mmol/L (136-145); Total Bilirubin 0.2 mg/dL (0.15-1.2); Total Protein 7.5 g/dL (6.6-8.7)
--- NOTE | 2023-03-18 18:02 | W.ED.CHESTPA ---
HPI - Chest Pain General: Chief Complaint: Chest Pain Stated Complaint: Chest pain, sob Time Seen by Provider: 03/18/23 17:55 History of Present Illness: Presents to the ER with chest pain and shortness of breath intermittent this started approximately 9 AM today patient took nitro x2 and aspirin with minimal help. Patient felt that his heart rate was about 140 beats a minute when he woke up and just does not feel quite right. Patient has seen a medical assistant ob gyn for similar episodes in the past he had a last angiogram approximately 4 to 5 years ago. Patient was placed on long-acting nitro at that time for similar episodes but his blood pressure kept dropping so he took him off of it. Patient has been having increasing frequency and intensity of these feelings for about the last month. Review of Systems General: Reports: 10 or more systems reviewed and unremarkable except in HPI and below PFSH ED PFSH: Medical History Essential hypertension Flu-like symptoms History of rotator cuff tear Lower respiratory infection Nasal cavity mass Upper respiratory infection Surgical History H/O esophagogastroduodenoscopy (06/30/21) esophagitis and gastric erosions H/O ventral hernia repair History of amputation of toe 2005 History of colonoscopy 2018 History of fasciotomy right 2005 History of incisional hernia repair History of sinus surgery Social History Smoking and tobacco status: former smoker Alcohol intake: former Substance/Drug Use: never Physical Exam Const: COMMON NORMALS: no acute distress, patient oriented x3, no limitations, healthy appearing, alert and well nourished HENMT: COMMON NORMALS: normocephalic, atraumatic, hearing grossly normal bilaterally, external ears normal, Normal external nose present and moist oral mucous membranes HEAD & SCALP: normocephalic and atraumatic NOSE: Normal external nose present EXTERNAL EAR: Yes external ears normal Neck/C-Spine: COMMON NORMALS: full ROM, no lymphadenopathy, supple, no meningeal signs, no JVD and Thyroid normal THYROID: Thyroid normal Chest: COMMONS NORMALS: normal inspection of the chest and normal palpation of entire chest wall Resp: COMMON NORMALS: normal respiratory effort, No retractions, No use of accessory muscles and clear to auscultation bilaterally AUSCULTATION: clear to auscultation bilaterally Cardio: COMMON NORMALS: no JVD, regular rate, regular rhythm, S1 normal heart sound present, S2 normal heart sound present, No gallops present (Cardio), No clicks present (Cardio), No murmurs present (Cardio) and No rub (Cardio) RATE: regular rate RHYTHM: regular rhythm HEART SOUNDS: S1 normal heart sound present and S2 normal heart sound present GI: COMMON NORMALS: Normal to inspection, nondistended, normoactive bowel sounds present, Soft to palpation, non-tender, No hepatosplenomegaly present and no masses PALPATION: Yes Soft to palpation and Yes No hepatosplenomegaly present : COMMON NORMALS: Yes no CVA tenderness BLADDER/KIDNEY EXAM: Yes no CVA tenderness Back/Pelvis: COMMON NORMALS: no CVA tenderness Neuro: COMMON NORMALS: patient oriented x3 SENSORIUM/ORIENTATION: Yes alert MENINGEAL SIGNS: Yes no meningeal signs Course Vital Signs: Vital signs: Vital Signs Temperature 98.2 F 03/18/23 14:17 Pulse Rate 69 03/18/23 19:10 Respiratory Rate 16 03/18/23 19:10 Blood Pressure 115/81 03/18/23 19:10 Pulse Oximetry 99 03/18/23 19:10 Oxygen Delivery Me thod Room Air 03/18/23 18:05 MDM - Chest Pain Medical Decision Making Patient presents ER with complaints of chest pain shortness of breath and heart racing out of his chest. Patient had typical cardiac work-up which essentially was benign benign troponin. It is thought this pain is not cardiac in nature. Patient is chest pain-free during his stay here. Patient will be referred back to his primary care and/or medical assistant ob gyn for further work-up and evaluation. Differential Diagnosis Unlikely acute massive pulmonary embolism, acute respiratory failure, acute myocardial infarction, cardiac arrest or sudden cardiac Medical Records I reviewed the patient's medical records. Lab Data I reviewed the patient's lab results. 03/18/23 14:51 03/18/23 14:51 Radiology Impressions Chest X-Ray 03/18/23 14:20 IMPRESSION: Densities overlying the lower lung arias likely represent nipple shadows. If there is clinical concern for lung mass, nipple markers and repeat images are recommended. Laboratory Results WBC 14.7 10^3/uL (4.0-10.0) H 03/18/23 14:51 RBC 5.85 10^6/uL (4.1-5.3) H 03/18/23 14:51 Hgb 16.8 g/dL (11.7-16.6) H 03/18/23 14:51 Hct 51.4 % (42.0-52.0) 03/18/23 14:51 MCV 87.9 fl (80-94) 03/18/23 14:51 MCH 28.7 pg (28.0-34.0) 03/18/23 14:51 MCHC 32.7 g/dL (30.0-36.0) 03/18/23 14:51 RDW 12.9 % (12.1-15.1) 03/18/23 14:51 Plt Count 204 10^3/cmm (130-400) 03/18/23 14:51 MPV 11.5 fL (7.4-10.4) H 03/18/23 14:51 Neut % (Auto) 71.8 % 03/18/23 14:51 Lymph % (Auto) 19.6 % 03/18/23 14:51 Casey % (Auto) 5.6 % 03/18/23 14:51 Eos % (Auto) 2.0 % 03/18/23 14:51 Baso % (Auto) 0.7 % 03/18/23 14:51 Neut # (Auto) 10.56 10^3/uL (1.8-7.7) H 03/18/23 14:51 Lymph # (Auto) 2.9 10^3/uL (0.8-4.8) 03/18/23 14:51 Casey # (Auto) 0.8 10^3/uL (0.2-0.9) 03/18/23 14:51 Eos # (Auto) 0.3 10^3/uL (0.0-0.8) 03/18/23 14:51 Baso # (Auto) 0.1 10^3/uL (0.0-0.1) 03/18/23 14:51 Nucleated RBC % (auto) 0 % 03/18/23 14:51 Nucleated RBCs # 0.0 /100WBC 03/18/23 14:51 PT 13.30 SECONDS (12.1-14.9) 03/18/23 14:51 INR 0.98 (0.8-1.2) 03/18/23 14:51 APTT 29.9 SECONDS (23.9-36.7) 03/18/23 14:51 D-Dimer 0.28 ug/mIFEU (0-0.59) 03/18/23 14:51 Sodium 141 mmol/L (136-145) 03/18/23 14:51 Potassium 4.1 mmol/L (3.5-5.1) 03/18/23 14:51 Chloride 103 mmol/L (98-107) 03/18/23 14:51 Carbon Dioxide 26 mmol/L (22-29) 03/18/23 14:51 Anion Gap 16.1 (5-19) 03/18/23 14:51 BUN 15 mg/dL (6-20) 03/18/23 14:51 Creatinine 0.8 mg/dL (0.7-1.2) 03/18/23 14:51 GFR Calculation 106.0 mL/min (90-130) 03/18/23 14:51 Glucose 81 mg/dL (65-115) 03/18/23 14:51 Calculated Osmolality 292 mOsm/kg (285-295) 03/18/23 14:51 Calcium 9.3 mg/dL (8.5-10.5) 03/18/23 14:51 Total Bilirubin 0.2 mg/dL (0.15-1.2) 03/18/23 14:51 AST 16 U/L (0-40) 03/18/23 14:51 ALT 22 U/L (0-41) 03/18/23 14:51 Alkaline Phosphatase 66 U/L (40-130) 03/18/23 14:51 Creatine Kinase 92 U/L (39-308) 03/18/23 14:51 Troponin T Gen 5 ng/L 6 ng/L (0-15) 03/18/23 18:57 Troponin T Baseline 6 ng/L (0-15) 03/18/23 14:51 NT-Pro-B Natriuret Pep 36 pg/mL (0-125) 03/18/23 14:51 Total Protein 7.5 g/dL (6.6-8.7) 03/18/23 14:51 Albumin 4.8 g/dL (3.5-5.2) 03/18/23 14:51 Globulin 2.7 g/dL (1.3-4.6) 03/18/23 14:51 Lipase 39 U/L (13-60) 03/18/23 14:51 Urine Color Straw (Yellow) 03/18/23 15:20 Urine Appearance Clear (CLEAR) 03/18/23 15:20 Urine pH 7 (5-7) 03/18/23 15:20 Ur Specific [place] 1.005 (1.005-1.030) 03/18/23 15:20 Urine Protein Neg (Negative) 03/18/23 15:20 Urine Glucose (UA) Norm (Normal) 03/18/23 15:20 Urine Ketones Negative (Negative) 03/18/23 15:20 Urine Blood Neg (Negative) 03/18/23 15:20 Urine Nitrate Negative (Negative) 03/18/23 15:20 Urine Bilirubin Neg (Negative) 03/18/23 15:20 Urine Urobilinogen Norm mg/dL (Negative) 03/18/23 15:20 Ur Leukocyte Esterase Negative (Negative) 03/18/23 15:20 Urine Opiates Screen Negative ng/mL (Negative) 03/18/23 15:20 Ur Barbiturates Screen Negative ng/mL (Negative) 03/18/23 15:20 Ur Phencyclidine Scrn Negative ng/mL (Negative) 03/18/23 15:20 Ur Amphetamines Screen Negative ng/mL (Negative) 03/18/23 15:20 U Benzodiazepines Scrn Negative ng/mL (Negative) 03/18/23 15:20 Urine Cocaine Screen Negative ng/mL (Negative) 03/18/23 15:20 U Marijuana (THC) Screen Negative ng/mL (Negative) 03/18/23 15:20 EKG Data EKG 1: I personally reviewed and interpreted this EKG as follows: EKG interpretation date: 03/18/23 EKG interpretation time: 14:15 Prior EKG tracings: not available for review Interpretation: EKG showed sinus rhythm at 81 bpm, LA interval 127, QRS of 89, QTc 407, normal sinus rhythm no ST-T wave changes Discharge Plan Discharge Patient Disposition: Home Clinical Impression: Atypical chest pain Condition: Stable Prescriptions: No Action aspirin 325 mg tablet 325 mg PO DAILY nitroglycerin 0.4 mg tablet, sublingual 0.4 mg sublingual Q5M PRN (Reason: chest pain) Qty: 25 2RF Rx Instructions: do not exceed 3 doses per episode Discharge Orders: Discharge ED (Routine); Ordered 03/18/23 Ordered By: Heath Connell Referrals: Beckie Zamora API PRODUCT MANAGER [Primary Care Provider] - 1 week Patient Instructions: Chest Pain - Noncardiac Activity Restrictions/Additional Instructions: Your work-up in the ER was essentially been fine and did not reveal a cardiac nature to your chest pain. Please follow back up with your primary care practitioner and/or medical assistant ob gyn in the next 7 to 14 days for further evaluation and treatment. Coding Level of Care Code ED Associate Counsel for Poli Regalado
[2023-03-18 18:05] VITALS: BP 134/80; PULSE 75; RESP 12; O2SAT 99
[2023-03-18 18:07] LABS: Add Urine Microscopic? NO; Charge for UA Resulting for Rev
[2023-03-18 18:17] LABS: Bilirubin Urine Neg (Negative); Blood Urine Neg (Negative); Glucose Urine UA Norm (Normal); Ketones Urine Negative (Negative); Leukocyte Esterase Urine Negative (Negative); Nitrate Urine Negative (Negative); Protein Urine Neg (Negative); Specific Gravity, Urine 1.005 (1.005-1.030); Urine Appearance Clear (CLEAR); Urine Color Straw (Yellow); Urobilinogen Urine Norm (Negative); pH Urine 7 (5-7)
[2023-03-18 18:26] LABS: Amphetamines Screen Urine Negative (Negative); Barbiturates Screen Urine Negative (Negative); Benzodiazepines Screen Urine Negative (Negative); Cocaine Screen Urine Negative (Negative); Opiate Screen Urine Negative (Negative); PCP Screen Urine Negative (Negative); THC Screen Urine Negative (Negative)
[2023-03-18 19:10] VITALS: BP 115/81; PULSE 69; RESP 16; O2SAT 99
[2023-03-18 19:20] LABS: Troponin T (5th) Once 6 ng/L (0-15)
[2023-03-18 19:34] VITALS: BP 115/81; PULSE 69; RESP 16; TEMP 36.8; O2SAT 99
== END 2023-03-18 19:35 | disposition home or self-care (01) ==
PROVIDERS: Physician Assistant; Emergency Provider Emergency Medicine; PCP Nurse Practitioner Family
DX: R07.89 Other chest pain (principal); Z79.82 Long term (current) use of aspirin; Z87.891 Personal history of nicotine dependence; I10 Essential (primary) hypertension
CPT/HCPCS: 36415; 71045; 80053; 80306; 81003; 82550; 83690; 83880; 84484; 85025; 85378; 85610; 85730; 93005; 99285

== ENCOUNTER 2023-03-30 11:07 | Outpatient (CLI) | payer MEDICARE, MEDICAID, SELFPAY ==
[2023-03-30 12:11] VITALS: BMI 21.3
--- NOTE | 2023-03-30 12:11 | ECG_ITS ---
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 Interpretive Statements NAME OF STUDY: TREADMILL STRESS TEST INDICATION: Abnormal EKG Baseline blood pressure of 109/72 mm Hg, heart rate of 87 beats per minute and oxygen saturation of 93 %. EKG showed with sinus rhythm, right axis deviation normal ST-Ts. ??? The patient exercised for 10 minutes and 6 seconds on a [standard Manolo protocol]. Patient attained a maximum heart rate of 152 beats per minute( 85 % of the maximum predicted heart rate) with a blood pressure at the peak exercise of 169/70 mm Hg and oxygen saturation of 94%. The EKG at the peak exercise revealed sinus tachycardia with no significant ST-T wave chnages. Patient had chest pain 7 minutes 44 seconds into exercise and then resolved gradually in recovery. No significant arrhythmis with the exercise.??? During the recovery phase, there were no new changes. ??? Blood pressure at the end of the recovery phase was 117/59 mm Hg with a heart rate of 102 beats per minute and oxygen saturation of 96%. ??? CONCLUSION: 1. Normal EKG response to treadmill exercise. 2. No exercise-induced cardiac arrhythmia. Patient did have chest pain during exercise that resolved spontaneously in recovery. 3. Excellent exercise tolerance, attained a maximum of 13.5 METs. 4. Baseline normal blood pressure with normal response to exercise. Electronically Signed On 05-02-2023 16:53:48 CDT by Patricia Miller M.D. [id number]
[2023-03-30 15:08] VITALS: BP 117/59; PULSE 98
== END 2023-03-30 11:08 | disposition home or self-care (01) ==
LOC: CDL 11:08
PROVIDERS: PCP Nurse Practitioner Family; Visit Provider Internal Medicine Cardiovascular Disease
DX: R07.9 Chest pain, unspecified (principal)
CPT/HCPCS: 93017

== ENCOUNTER → 2023-04-02 10:27 | Outpatient (BNVA) | payer MEDICARE, MEDICAID, SELFPAY | PROVIDERS: PCP Nurse Practitioner Family; Visit Provider Internal Medicine Cardiovascular Disease | DX: R07.9 Chest pain, unspecified (principal); Z87.891 Personal history of nicotine dependence | CPT/HCPCS: 99213 ==

== ENCOUNTER 2023-04-12 05:26 | Outpatient (CLI) | payer MEDICARE, MEDICAID, SELFPAY ==
[2023-04-12] VITALS (12 sets, daily range): BP systolic 109–148; BP diastolic 61–87; PULSE 61–79; RESP 12–19; TEMP 36.6; O2SAT 96–100; BMI 21.6
--- NOTE | 2023-04-12 06:00 | XACV_ITS ---
Exam Room: 2 Ht: 180 cm Wt: 70 kg BSA: 1.87 m2 Gender: Male : 1980 Any Known Allergies: Other Exam Priority: Routine Procedure(s): Procedure Description: Diagnostic procedure Procedure Description: Left Heart Catheterization Procedure Description: Left ventriculography Procedure Description: Coronary Angiography Jesús MARTINEZ; Diagnostic Cath Status: Elective Diagnostic Findings * Young patient with few risk factors with disabling chest pain, shortness of breath and weakness. Frequent emergency room and office visits. Stress testing normal. Recommended for coronary angiography. * Coronary angiography reveals right coronary artery dominance. The left main is normal. The LAD with 2 diagonals is normal. The circumflex is normal. There are 2 marginal branches. The right coronary artery is the dominant vessel and ends distally as the posterior descending artery and a posterior left ventricular branch. It is normal. PCI Status: Elective Conclusions 1. Normal coronary arteries. Normal left ventriculography. Recommendations * None. Interventional RX Recommendation: none Diagnostic RX Recommendation: none Anticoagulation: Heparin Ventriculography Ejection Fraction: 65.0 % Pressures Phase:Rest AO : 105 / 64 ( 79 ) @ 8:12:00 AM 80 / 64 ( 73 ) @ 8:14:00 AM 129 / 79 ( 102 ) @ 8:20:00 AM 130 / 79 ( 100 ) @ 8:20:00 AM LV : 137 / -12 / 15 @ 8:19:00 AM 137 / -16 / 11 @ 8:19:00 AM 134 / -17 / 11 @ 8:20:00 AM Valves Phase:DefaultPhase AV : 5.0 @ 7:24:39 AM 5.0 @ 7:24:39 AM AV Mean Gradient: 15.0 @ 7:24:39 AM Clinical Evaluation EBL: 5mL-10mL Procedural Details Procedure Consent Obtained. Admit Source: Out Patient. Pre-Procedure Time Out. Identified patient by full name and date of as verbalized by the patient/guarantor. Does the consent match the physician's order: Yes. Accurate & Complete Informed Consent: Yes. Inpatient/Outpatient History & Physical on Chart: Yes. If H&P is completed, is and addenduem needed: No; If yes, is the addendum complete: N/A. Visualize and Verify Site with Patient/Guarantor: N/A. Relevant Radiology Images available: N/A. The risks, benefits, and alternatives of sedation and/or procedure were discussed by physician. The patient agrees to continue. Procedure started. [facility] Clinical Fraility Score: 2: Well. Merchandise Processor Indications: chest pain. Chest Pain Symptom Assessment: Atypical Angina. Correct patient, site and procedure confirmed by cath team. PERRLA. Strong, equal hand adjunct latin professor bilaterally. Lungs clear x 5 lobes. IV Site on Arrival: 18 gauge in the right anticubital. IV Fluids: 0.9% NaCl at KVO. 0 mL infused prior to labor supervisor. Pre Procedural Pulses: bilateral dorsalis pedis was 3+. Pre Procedural Pulses: bilateral posterior tibial was 3+. Pre Procedural Pulses: bilateral radial was 3+. Oxygen started at 2liters/min via nasal canula. right groin was prepped with chloroprep then draped in the usual sterile fashion. right radial was prepped with chloroprep then draped in the usual sterile fashion. Physician notified. Baseline sample Acquired. HR: 77 BPM. Physician arrived. Physician scrubbed in. Immediate Pre-Procedure Time Out. Correct Patient: Yes; Correct Procedure: Yes; Correct Site: Yes; Correct Patient Position: Yes; Correct Supplies: Yes; Dried Flammable Prep: Yes; Blood Products Available: N/A;. Lidocaine 1% infiltrated to the right radial. Arterial access obtained. Not able to advance wire. Wire and needle out. Manual pressure was held as needed to stop the bleeding. Arterial access obtained. A 5 lebanese TIG catheter in over wire. Multiple views taken of left coronary artery. Catheter redirected to the RCA. Multiple views taken of right coronary artery. Catheter out. A 5 lebanese Angled Pig catheter in over wire. EDP Sample taken: LV 137/-13,15; HR: 74 BPM; SpO2: 99%. LV gram performed in GEIGER @ 10 mL/second for a total of 30 mL. EDP Sample taken: LV 137/-17,11; HR: 82 BPM; SpO2: 100%. Pullback taken: LV 134/-18,11; AO 129/79(102); Mean: 15mmHg, Peak to Peak: 5mmHg, SEP: 7sec/min; HR: 78 BPM; SpO2: 99%. Catheter out. Post Procedure: Pulses reassessed and unchanged. PERRLA. Strong, equal hand adjunct latin professor bilaterally. No VTE prophylaxis required. Medication's Wasted: Heparin = 1000 units. Medication's Wasted: Nitro = 49.8 mg. Medication's Wasted: Lidocaine 1% = 8 mL. Total IV fluids: 34 mL. A TR Band was successful obtaining hemostatsis at the Right Radial artery insertion site. Post-op diagnosis: normal coronaries. Complications: none. Estimated blood loss: 5mL-10mL. Responsiveness - Normal response to verbal stimuli; alert and oriented, PERRLA. Airway - Unaffected, no intervention required; spontaneous ventilation. Circulation: W/N/L, pulses unchanged. Nausea/Vomiting: No. Procedure completed. Patient transferred by wheelchair to CPRU. Vital chart was stopped. Access Site Site: Right Radial artery Sheath Size: 6 Fr Hemostasis Method: TR Band Hemostasis Success: Successful Procedure Medications Start: 6:50 AM Stop: 6:50 AM Medication: Versed Amount: 1 mg Route: I.V. Start: 6:50 AM Stop: 6:50 AM Medication: Fentanyl Amount: 50 mcg Route: I.V. Start: 6:55 AM Stop: 6:55 AM Medication: Versed 1 mg and Fentanyl 25 mcg Amount: 1 Route: I.V. Start: 7:00 AM Stop: 7:00 AM Medication: Fentanyl Amount: 25 mcg Route: I.V. Start: 7:01 AM Stop: 7:01 AM Medication: Versed Amount: 1 mg Route: I.V. Start: 7:07 AM Stop: 7:07 AM Medication: Versed Amount: 1 mg Route: I.V. Start: 7:10 AM Stop: 7:10 AM Medication: Nitrogylcerin Amount: 200 mcg Route: I.A. Start: 7:11 AM Stop: 7:11 AM Medication: Heparin Amount: 5000 units Route: I.V. I, the attending physician, have reviewed and verified all procedure medications. Yes, all medications given per verbal order History/Risk Factors Hypertension: Yes Dyslipidemia: No Peripheral Arterial Disease (PAD): No Myocardial Infarction ([place]): No Obesity: No Tobacco Use: Former Prior Interventions PCI: No CABG: No Valve Surgery: No Report Signatures Finalized by Dr. Bernardino Espinosa MD on 04/12/2023 07:31 AM
[2023-04-12] MEDS: diphenhydrAMINE 50 mg Capsule PO (06:25)
--- NOTE | 2023-04-12 06:48 | P.HPUD_ITS ---
Surgery/Procedure H&P Update DATE OF PROCEDURE: April 12, 2023 DATE H&P PERFORMED: 04/02/23 CHANGES TO PREVIOUS DOCUMENTATION: none PRIMARY INDICATION FOR PROCEDURE: chest pain PLANNED PROCEDURE: Operation Date: 04/12/23 08:30 Proposed Procedures p [facility] w w/o 04403,R07.9(Left) - Bernardino Espinosa MD
--- NOTE | 2023-04-12 07:25 | SUR.PHASEII ---
POST CATH NOTE Patient to CPRU-3. Status post cardiac cath via the right radial approach. Site is hemostatic and free of hematoma formation. Verbal post cath instructions went over with the patient and the family. They understood well. Vitals and Assessments per flowsheets. Call light in reach. Informed to call for needs.
--- NOTE | 2023-04-12 07:42 | SUR.PHASEII ---
iv normal saline set to 100 ml/hr post cath as ordered.
--- NOTE | 2023-04-12 07:44 | SUR.PHASEII ---
patient c/o pain at insertion site of radial sheath. Site is tender to touch. I assessed the site. There is no change. I explained that the band is applying pressure to the site and that it will improve with band release. TV turned on at request to help take mind off of it. Position changed. Will reassess.
--- NOTE | 2023-04-12 08:00 | SUR.PHASEII ---
Pain improving with intervention.
--- NOTE | 2023-04-12 08:37 | PM.DCS ---
Discharge Providers Date of Admission: April 12, 2023 Date of Discharge: April 12, 2023 Attending Provider at Admission: Jesús Attending Provider at Discharge: Bernardino Espinosa MD Primary Care Provider: Beckie Zamora NP Diagnoses at Discharge Discharge Diagnosis (1) Chest pain: Status: Acute Reason for Visit Reason for Visit: R07.9 Brief History: Patient has visited the clinic in the emergency room several times with chest pain and other rather unusual symptoms. He has no significant risk factors. Stress testing was completely normal. Before the stress test was even interpreted he called back to the office for an emergency visit due to ongoing disabling symptoms of chest pain, shortness of breath, weakness and fatigue. I scheduled him for coronary angiography. Hospital Course Hospital Course The angiogram was completely normal. It was done from the right radial artery. There were no complications. Physical Exam Narrative: GENERAL: In general he is comfortable at rest HEENT: Exam within normal limits. NECK: Supple without jugular vein distention. The carotid upstroke is normal without bruits. BACK: Exam normal. LUNGS: Clear. HEART: Regular rate and rhythm. ABDOMEN: Benign without organomegaly or tenderness. EXTREMITIES: No edema. The right radial artery area is flat, dry, without complication, without bleeding and hematoma. NEUROLOGIC: Exam normal. SKIN: Unremarkable. Discharge Data Studies Completed and Pending Completed Studies During Hospitalization Category Date Time Status FINANCIAL REPORTING CONSULTANT request for service Routine Exams 04/12/23 06:00 Completed Procedures Performed Left heart catheterization, coronary angiography, left ventriculography. Vitals Last Vital Signs Temp 97.9 F 04/12/23 06:15 Pulse 72 04/12/23 07:45 Resp 18 04/12/23 07:45 BP 119/75 04/12/23 07:45 Pulse Ox 96 04/12/23 07:45 O2 Del Method Room Air 04/12/23 07:45 Discharge Plan Discharge Patient Disposition: Home Prescriptions: Continued aspirin 325 mg tablet 325 mg PO DAILY Discontinued isosorbide mononitrate 30 mg tablet extended release 24 hr 30 mg PO DAILY nitroglycerin 0.4 mg tablet, sublingual 0.4 mg sublingual Q5M PRN (Reason: chest pain) Qty: 25 2RF Rx Instructions: do not exceed 3 doses per episode Discharge Orders: Discharge Order (Routine); Ordered 04/12/23 Ordered By: Bernardino Espinosa Referrals: Jazmyn Dove FNP [Nurse Practitioner] - 7-10 days (Check right radial artery area and chemistry panel.) Diet: Regular Activity: Limit activity as instructed Activity Restrictions/Additional Instructions: No lifting over 5 pounds with the right arm for 2 days. Discharge Attestations Time Spent in Discharge Care*: less than 30 min Quality Metrics Clinical Quality Measures [ No reported AMI, CVA or VTE this stay] Coding Level of Care Code 18199 Total time (in minutes) for Discharge: 25 Diagnoses Chest pain R07.9
== END 2023-04-12 10:12 | disposition home or self-care (01) ==
PROVIDERS: PCP Nurse Practitioner Family; Visit Provider Internal Medicine Cardiovascular Disease
DX: R07.9 Chest pain, unspecified (principal); R06.02 Shortness of breath; R53.1 Weakness; R53.83 Other fatigue
CPT/HCPCS: 36415; 93458; 96361; 96365; 96367; 99152; 99153; C1769; C1887; C1894; J1644; J2250; J3010; J3490; J7030; Q0163; Q9967

== ENCOUNTER 2023-11-30 19:10 | Emergency (ER) | payer MEDICARE, MEDICAID, SELFPAY ==
[2023-11-30 19:15] VITALS: BP 116/70; PULSE 87; RESP 18; TEMP 36.7; O2SAT 98; BMI 21.3
[2023-11-30] MEDS: methylPREDNISolone (DEPO) 80 MG/ML INJ 1 mL INTRA-ARTI (20:12)
[2023-11-30] MEDS: lidocaine 1% INJ 10 mL (per mL) 2 ML XX (20:12)
--- NOTE | 2023-11-30 20:16 | W.ED.EXTPRO ---
Documented by User: Heath Connell DO 11/30/23 20:28 HPI - Extremity Problem General: Chief complaint: Extremity Injury, Upper Stated complaint: Rt Shoulder Pain Time Seen by Provider: 11/30/23 19:28 [facility] ED PFSH: Medical History Chest pain Essential hypertension Flu-like symptoms History of rotator cuff tear Lower respiratory infection Nasal cavity mass Upper respiratory infection Surgical History H/O esophagogastroduodenoscopy (06/30/21) esophagitis and gastric erosions H/O ventral hernia repair History of amputation of toe 2005 History of colonoscopy 2018 History of fasciotomy right 2005 History of incisional hernia repair History of sinus surgery Social History Smoking and tobacco/nicotine status: former use of tobacco/nicotine Alcohol intake: former Substance/Drug Use: never Physical Exam Extremity: EXTREMITY IMAGE (FRONT): 1. tenderness with palpation and indicated area of pain Procedures Joint Aspiration/Injection Joint Asp./Inject. 1: Time Out Performed: Yes Side of body: right Joint Aspirated: shoulder Skin Prep: other (Cleansed with alcohol) Local Anesthetic: lidocaine 1% Amount of anesthesia used (mL): 2 Needle Size Used: 22G Medication Injected, if any: other (Depo-Medrol 80 mg) Amount of medication injected (mL): 1 Patient Tolerated Procedure: well and no complications Course Vital Signs: Vital signs: Vital Signs Temperature 98.1 F 11/30/23 20:23 Pulse Rate 84 11/30/23 20:23 Respiratory Rate 16 11/30/23 20:23 Blood Pressure 118/72 11/30/23 20:23 Pulse Oximetry 99 11/30/23 20:23 Oxygen Delivery Me thod Room Air 11/30/23 19:15 MDM - Extremity (Nontraumatic) No radiology studies performed this visit Discharge Plan Discharge Patient Disposition: Home Clinical Impression: Rotator cuff arthropathy of right shoulder Right shoulder pain Qualifiers: Chronicity: chronic Qualified Code(s): M25.511 - Pain in right shoulder Condition: Stable Prescriptions: No Action aspirin 325 mg tablet 325 mg PO DAILY Discharge Orders: Discharge ED (Routine); Ordered 11/30/23 Ordered By: Elias Navarrete Referrals: Beckie Zamora NP [Primary Care Provider] - Discharge Diet: Usual diet Discharge Activity: Increase activity as tolerated Patient Instructions: Rotator Cuff Injury Exercises (DC) Activity Restrictions/Additional Instructions: You did receive intra-articular steroid injection while in the emergency department tonight. You will still need to follow-up with your orthopedic surgeon as this is only temporary for the rotator cuff See provided handout with information about rotator cuff exercises Make an appointment with your surgeon as soon as possible Return to the emergency department if any rapid worsening symptoms and as needed Coding Level of Care Code ED Suture Polisher for Chg Fwd Documented by User: JULIANNA Triana 11/30/23 20:34 HPI - Extremity Problem General: Chief complaint: Extremity Injury, Upper Stated complaint: Rt Shoulder Pain Time Seen by Provider: 11/30/23 19:28 Source: patient Mode of arrival: ambulatory Limitations: no limitations History of Present Illness: 43yo male presents with significant other for chronic right shoulder pain. Patient reports that he knows he has a bad rotator cuff. States that he did see an orthopedist at [facility] in [place] who did cortisone injections, but advised the patient that he would need to have rotator cuff surgery. States that he has not been able to get back up to [place] as he cannot take time off work. Reports that he believes he will be able to take some time off this summer, but is in significant discomfort. Patient reports that he has been taking gabapentin and Tylenol for the pain with no improvement. 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 Patient denies recent fall, trauma, injury, any other concern at this time. Associated symptoms: Deny chest pain or fever(s) Review of Systems Const: Denies: fever(s) Card: Denies: chest pain Resp: Denies: dyspnea Musc: Reports: joint pain (Right shoulder) PFSH ED PFSH: Medical History Chest pain Essential hypertension Flu-like symptoms History of rotator cuff tear Lower respiratory infection Nasal cavity mass Upper respiratory infection Surgical History H/O esophagogastroduodenoscopy (06/30/21) esophagitis and gastric erosions H/O ventral hernia repair History of amputation of toe 2004 History of colonoscopy 2018 History of fasciotomy right 2005 History of incisional hernia repair History of sinus surgery Social History Smoking and tobacco/nicotine status: former use of tobacco/nicotine Alcohol intake: former Substance/Drug Use: never Physical Exam Const: COMMON NORMALS: no acute distress GENERAL APPEARANCE: cooperative ORIENTATION/CONSCIOUSNESS: Yes awake OTHER: Patient is ambulatory to vertical flow exam chair unassisted. He is sitting upright in the chair in no acute distress. He is able to give history with no difficulty. Significant other is at bedside HENMT: COMMON NORMALS: normocephalic HEAD & SCALP: normocephalic Chest: CHEST: Yes Symmetrical chest wall rise Resp: COMMON NORMALS: normal respiratory effort Extremity: RIGHT UPPER EXTREMITY: Yes shoulder joint Right shoulder: Yes palpation and Yes Right shoulder joint ROM exam (decreased extension and abduction right arm) OTHER: Sensation intact right hand. Full range of motion of the right hand with no difficulty. Radial pulse 2+, capillary refill less than 3 seconds EXTREMITY IMAGE (FRONT): 1. tenderness with palpation and indicated area of pain Psych: ATTITUDE: Yes calm Course Vital Signs: Vital signs: Vital Signs Temperature 98.1 F 11/30/23 20:23 Pulse Rate 84 11/30/23 20:23 Respiratory Rate 16 11/30/23 20:23 Blood Pressure 118/72 11/30/23 20:23 Pulse Oximetry 99 11/30/23 20:23 Oxygen Delivery Me thod Room Air 11/30/23 19:15 MDM - Extremity (Nontraumatic) Medical Decision Making 43yo male here with significant other for chronic right shoulder pain due to a known bad rotator cuff. Patient has seen an orthopedic transplant where he was receiving joint injections, but has not been able to get back to [place] to see the doctor. States he was told that he would have to have surgery on the shoulder, but is having difficulty taking time off. Patient denies fall, trauma, recent injury, any other concern at this time. Patient is nontoxic in appearance. Vital signs are stable. No acute concerning findings noted on exam. Discussed with patient that any treatment would be temporary as he is already seen the orthopedist and knows that he needs to have rotator cuff surgery. Patient does state understanding. He is requesting joint injections. Discussed with patient that I do not perform joint injections. ER attending was agreeable to proceed with steroid injection to the right shoulder. Patient was agreeable with plan to proceed. Discussed with patient need to follow-up with orthopedist as soon as possible. Recommend range of motion exercises of the shoulder specifically for her rotator cuff. Activity as tolerated. Advised return to the emergency department if any rapid worsening symptoms and as needed. Patient states understanding has no further questions or concerns at this time. Medical Records I reviewed the patient's medical records. Discharge Plan Discharge Patient Disposition: Home Clinical Impression: Rotator cuff arthropathy of right shoulder Right shoulder pain Qualifiers: Chronicity: chronic Qualified Code(s): M25.511 - Pain in right shoulder Condition: Stable Prescriptions: No Action aspirin 325 mg tablet 325 mg PO DAILY Discharge Orders: Discharge ED (Routine); Ordered 11/30/23 Ordered By: Elias Navarrete Referrals: Beckie Zamora NP [Primary Care Provider] - Discharge Diet: Usual diet Discharge Activity: Increase activity as tolerated Patient Instructions: Rotator Cuff Injury Exercises (DC) Activity Restrictions/Additional Instructions: You did receive intra-articular steroid injection while in the emergency department tonight. You will still need to follow-up with your orthopedic surgeon as this is only temporary for the rotator cuff See provided handout with information about rotator cuff exercises Make an appointment with your surgeon as soon as possible Return to the emergency department if any rapid worsening symptoms and as needed Coding Level of Care Code ED Suture Polisher for Poli Regalado
[2023-11-30 20:23] VITALS: BP 118/72; PULSE 84; RESP 16; TEMP 36.7; O2SAT 99
== END 2023-11-30 20:24 | disposition home or self-care (01) ==
PROVIDERS: Emergency Provider Nurse Practitioner; PCP Nurse Practitioner Family
DX: M12.811 Other specific arthropathies, not elsewhere classified, right shoulder (principal); Z79.82 Long term (current) use of aspirin; I10 Essential (primary) hypertension; Z87.891 Personal history of nicotine dependence
CPT/HCPCS: 20610; 96374; 99284; J1010

== ENCOUNTER 2024-10-21 10:16 | Oncology outpatient (recurring) (ONCR) | payer MEDICARE, MEDICAID, SELFPAY ==
[2024-10-07 09:48] LABS: Basophils # 0.1 10^3/uL (0.0-0.1); Basophils % 0.5 %; Eosinophils # 0.2 10^3/uL (0.0-0.8); Eosinophils % 1.4 %; Hematocrit 51.2 % (37-53); Lymphocytes % 12.7 %; Mean Corpuscular HGB Conc 33.4 g/dL (30-55); Mean Corpuscular Hemoglobin 28.8 pg (27-33); Mean Corpuscular Volume 86.2 fl (82-101); Monocytes % 6.5 %; Neutrophils # 12.07 10^3/uL (1.8-7.7); Neutrophils % 78.6 %; Nucleated Red Blood Cells % 0 %; Platelet Count 282 10^3/cmm (157-399); Red Blood Count 5.94 10^6/uL (3.85-5.65); Red Cell Distribution Width 12.6 % (12.1-15.1); White Blood Count 15.36 10^3/uL (3.29-11.43)
[2024-10-07 10:06] LABS: Alanine Aminotransferase 21 U/L (0-41); Albumin Level 4.5 g/dL (3.5-5.2); Alkaline Phosphatase 67 U/L (40-130); Anion Gap 14.2 (5-19); Aspartate Amino Transferase 15 U/L (0-40); Blood Urea Nitrogen 11 mg/dL (6-20); Calcium 9.3 mg/dL (8.5-10.5); Carbon Dioxide 27 mmol/L (22-29); Chloride 103 mmol/L (98-107); Creatinine Clr Calc Pharmacy 124.8927; Globulin 2.7 g/dL (1.3-4.6); Glucose 87 mg/dL (65-115); Lactate Dehydrogenase 149 U/L (135-225); Osmolality Calculated 289 mOsm/kg (285-295); Potassium 4.2 mmol/L (3.5-5.1); Sodium 140 mmol/L (136-145); Total Bilirubin 0.5 mg/dL (0.15-1.2); Total Protein 7.2 g/dL (6.6-8.7)
[2024-10-13 15:30] LABS: Erythropoietin 5.4 mIU/mL (2.6-18.5)
[2024-10-15 14:19] LABS: CALR Exon 9 Mutation NOT DETECTED (NOT DETECTED); JAK2 Exon 12 Mutation NOT DETECTED (NOT DETECTED); JAK2 V617 Block Specimen ID whole blood; JAK2 V617 Mutation NOT DETECTED (NOT DETECTED); MPL Exon 10 Mutation NOT DETECTED (NOT DETECTED); Specimen Source Veinipunture
--- NOTE | 2024-10-16 09:30 | US_ITS ---
WS: [id number] Complete ABDOMINAL ULTRASOUND HISTORY: polycythemia COMPARISON: 07/19/2019 Liver: 17.6 cm in length. Normal size liver and echogenicity. No bile duct dilatation or mass. Portal Vein: Normal hepatopetal flow with monophasic waveform. Gallbladder: Normally distended gallbladder with no stones or wall thickening. CBD: 0.4 cm Pancreas: Normal size and echogenicity. Right kidney: 10.4 cm x 4.9 x 4.5 cm. Cortex:1.0 cm. Normal size and echogenicity. No hydronephrosis or mass. Left kidney: 11.0 cm x 5.2 cm x 4.7 cm. Cortex: 1.3 cm. Normal size and echogenicity. No hydronephrosis or mass. Spleen: 10.1 cm. Normal size and echogenicity. Aorta and IVC: Unremarkable abdominal aorta and IVC. US/US abdomen complete* [id number] Impression: Normal complete abdomen ultrasound.
== END 2024-10-24 23:59 | disposition home or self-care (01) ==
PROVIDERS: PCP Nurse Practitioner Family; Visit Provider Internal Medicine Medical Oncology
DX: D45 Polycythemia vera (principal); F17.210 Nicotine dependence, cigarettes, uncomplicated; Z71.6 Tobacco abuse counseling
CPT/HCPCS: 36415; 76700; 80053; 81219; 81270; 81279; 81339; 82668; 83615; 85025; 99205; 99213

== ENCOUNTER 2025-05-11 08:21 | Oncology outpatient (recurring) (ONCR) | payer MEDICAID, SELFPAY ==
[2025-05-11 08:43] LABS: Hematocrit 48.9 % (37-53); Hemoglobin 16.30 g/dL (11.27-16.99); Mean Corpuscular HGB Conc 33.3 g/dL (30-55); Mean Corpuscular Hemoglobin 29.7 pg (27-33); Mean Corpuscular Volume 89.1 fl (82-101); Nucleated Red Blood Cells % 0 %; Platelet Count 292 10^3/cmm (157-399); Red Blood Count 5.49 10^6/uL (3.85-5.65); White Blood Count 15.65 10^3/uL (3.29-11.43)
== END 2025-05-26 23:59 | disposition home or self-care (01) ==
PROVIDERS: PCP Nurse Practitioner Family; Visit Provider Internal Medicine Medical Oncology
DX: D45 Polycythemia vera (principal); F17.210 Nicotine dependence, cigarettes, uncomplicated; D72.829 Elevated white blood cell count, unspecified
CPT/HCPCS: 36415; 85025; 99213